=== PATIENT | male | born 1945 | race Caucasian/White ===

== ENCOUNTER 2018-06-10 20:05 | Emergency (ER) | payer MEDICARE, BC ==
[2018-06-10 21:35] LABS: ANION GAP 17.1 mmol/L (10-20); CHLORIDE,CL 99 mmol/L (98-107); SODIUM,NA 138 mmol/L (136-145)
[2018-06-10] MEDS: Take Home: Acetaminophen/HYDROcodone 325-10 MG, 5 Tab Pack PO ONE (21:59)
--- NOTE | 2018-06-10 22:04 | EDM.PDOC ---
ED HPI GENERAL MEDICAL PROBLEM - General Chief Complaint: Upper Extremity Injury/Pain Stated Complaint: left shoulder pain Time Seen by Provider: 06/10/18 20:45 Source of Information: Reports: Patient History Limitations: Reports: No Limitations - History of Present Illness INITIAL COMMENTS - FREE TEXT/NARRATIVE: Reports of left shoulder pain. He does normally walk with a walker/cane and he reportedly fell 2 days ago and has had increasing pain since that time. He had shoulder surgery several years ago and he is worried the hardware has moved. He denies numbness or tingling in the hand or arm. He denies headache, chest pain, shortness of breath, abdominal pain. Onset: Gradual Onset Date: 06/08/18 Duration: Getting Worse Location: Reports: Upper Extremity, Left Associated Symptoms: Reports: No Other Symptoms Treatments IN[employer]ER: Reports: NSAIDS - Related Data Allergies Allergy/AdvReac Type Severity Reaction Status Date / Time Penicillins Allergy Cannot Verified 02/08/17 11:48 Remember Sulfa (Sulfonamide Allergy Cannot Verified 02/08/17 11:48 Antibiotics) Remember tetracycline [Tetracycline] Allergy Cannot Verified 02/08/17 11:48 Remember Home Meds: Home Meds Cyanocobalamin (Vitamin B-12) [B-12] 2 tab PO DAILY 11/06/13 [History] Folic Acid 1 mg PO DAILY 11/06/13 [History] Multivitamin [Multi-Vitamin Daily] 1 each PO DAILY 11/06/13 [History] Pantoprazole Sodium [Protonix] 40 mg PO DAILY 11/06/13 [History] Clopidogrel [Plavix] 75 mg PO DAILY 02/27/14 [History] atorvaSTATin [Lipitor] 20 mg PO ACDINNER 02/27/14 [History] Alfuzosin HCl [Alfuzosin HCl ER] 10 mg PO DAILY 03/30/16 [History] Cholecalciferol (Vitamin D3) [D3-2000] 2,000 unit PO DAILY 03/30/16 [History] Ferrous Gluconate [Iron] 236 mg PO DAILY 03/30/16 [History] Gabapentin [Neurontin] 200 mg PO TID 03/30/16 [History] Lisinopril [Prinivil] 20 mg PO DAILY 03/30/16 [History] Magnesium 400 mg PO DAILY 03/30/16 [History] Potassium Chloride [Klor-Con 10] 20 meq PO BIDMEALS 03/30/16 [History] Sertraline HCl 100 mg PO DAILY 03/30/16 [History] Thiamine HCl 100 mg PO DAILY 03/30/16 [History] Albuterol/Ipratropium [DuoNeb 3.0-0.5 MG/3 ML] 3 ml NEB Q8HRRT #15 neb 04/03/16 [Rx] Amiodarone [Cordarone] 100 mg PO DAILY #30 04/03/16 [Rx] Finasteride [Proscar] 5 mg PO DAILY #30 04/03/16 [Rx] Furosemide [Lasix] 40 mg PO BID #60 tablet 04/03/16 [Rx] LORazepam [Ativan] 0.5 mg PO Q6H PRN #15 tablet 04/03/16 [Rx] Metoprolol Succinate [Toprol XL] 25 mg PO BEDTIME #30 tab.er 04/03/16 [Rx] Prednisone [IJD: predniSONE] 40 mg PO WITHBREAKFAST 7 Days tablet 04/03/16 [Rx] Sennosides/Docusate Sodium [Senokot-S Tablet] 2 cap PO BID #60 04/03/16 [Rx] Ipratropium [Atrovent] 2 spray NASBOTH BID 02/05/17 [History] Spironolactone [Aldactone] 25 mg PO DAILY 02/05/17 [History] guaiFENesin [Robitussin] 5 ml PO TID PRN 02/05/17 [History] Past Medical History HEENT History: Reports: Hard of Hearing, Impaired Vision Cardiovascular History: Reports: Heart Failure, High Cholesterol, Hypertension, [place], Other (See Below) Other Cardiovascular History: Left carotid stenosis. orthostatic hypotension Respiratory History: Reports: COPD Gastrointestinal History: Reports: Other (See Below) Other Gastrointestinal History: Alcoholic hepatitis. Fatty Liver Musculoskeletal History: Reports: Arthritis, Back Pain, Chronic, Osteoarthritis Neurological History: Reports: Other (See Below) Other Neuro History: wernicke encephalopathy Psychiatric History: Reports: Depression, Other (See Below) Other Psychiatric History: Alcohol Abuse Endocrine/Metabolic History: Reports: Other (See Below) Other Endocrine/Metabolic History: borderline diabetic Hematologic History: Reports: Anemia Oncologic (Cancer) History: Reports: None Dermatologic History: Reports: None - Past Surgical History HEENT Surgical History: Reports: Cataract Surgery, Tonsillectomy Cardiovascular Surgical History: Reports: Carotid Endarterectomy, Coronary Artery Bypass GI Surgical History: Reports: Colonoscopy Male Surgical History: Reports: Other (See Below) Other Male Surgeries/Procedures: kidney bx Endocrine Surgical History: Reports: None Musculoskeletal Surgical History: Reports: Shoulder Surgery Social & Family History - Family History Family Medical History: Unobtainable - Caffeine Use Caffeine Use: Reports: Coffee Review of Systems - Review of Systems Review Of Systems: See Below Constitutional: Reports: No Symptoms Eyes: Reports: No Symptoms Ears: Reports: No Symptoms Nose: Reports: No Symptoms Mouth/Throat: Reports: No Symptoms Respiratory: Reports: No Symptoms Cardiovascular: Reports: No Symptoms GI/Abdominal: Reports: No Symptoms Genitourinary: Reports: No Symptoms Musculoskeletal: Reports: Shoulder Pain Skin: Reports: No Symptoms Neurological: Reports: No Symptoms Psychiatric: Reports: No Symptoms ED EXAM, GENERAL - Physical Exam Exam: See Below Exam Limited By: No Limitations General Appearance: Alert, WD/WN, No Apparent Distress Eye Exam: Bilateral Eye: EOMI, Normal Inspection, PERRL Ears: Normal TMs Throat/Mouth: Normal Inspection, Normal Lips, Normal Teeth, Normal Gums, Normal Oropharynx, Normal Voice, No Airway Compromise Head: Atraumatic, Normocephalic Neck: Normal Inspection, Supple, Non-Tender, Full Range of Motion Respiratory/Chest: No Respiratory Distress, Lungs Clear, Normal Breath Sounds, No Accessory Muscle Use, Chest Non-Tender Cardiovascular: Normal Peripheral Pulses, Regular Rate, Rhythm, No Edema, No Gallop, No JVD, No Murmur, No Rub GI/Abdominal: Normal Bowel Sounds, Soft, Non-Tender, No Organomegaly, No Distention, No Abnormal Bruit, No Mass Back Exam: Normal Inspection, Full Range of Motion, NT Extremities: Normal Inspection, No Pedal Edema, Normal Capillary Refill, Limited Range of Motion (left shoulder pain on elevation, internal and external rotation) Neurological: Alert, Oriented, CN II-XII Intact, Normal Cognition, Normal Gait, Normal Reflexes, No Motor/Sensory Deficits Psychiatric: Normal Affect, Normal Mood Skin Exam: Warm, Dry, Intact, Normal Color, No Rash Lymphatic: No Adenopathy Course - Orders/Labs/Meds Orders: Active Orders 24 hr Category Date Time Status Shoulder Comp Lt [CR] Stat Exams 06/10/18 20:45 Ordered ETOH [ETHANOL BLOOD MEDICAL] [CHEM] Stat Lab 06/10/18 21:43 Ordered URINALYSIS W/MICROSCOPIC [UA W/MICROSCOPIC] [URIN] Stat Lab 06/10/18 20:50 Ordered Labs: Laboratory Tests 06/10/18 06/10/18 Range/Units 21:08 21:08 WBC 7.6 (4.0-10.0) x10^3/uL RBC 4.03 L (4.5-6.0) x10^6/uL Hgb 13.5 L D (14.0-18.0) g/dL Hct 40.7 (40.0-52.0) % MCV 101.0 H D (78.0-93.0) fL MCH 33.5 H (26.0-32.0) pg MCHC 33.2 (32.0-36.0) g/dL RDW Coeff of Derek 14.0 (10.0-15.0) % Plt Count 133 (130-400) x10^3/uL Neut % (Auto) 63.8 (50.0-80.0) % Lymph % (Auto) 26.9 (25.0-50.0) % [place] % (Auto) 6.2 (2.0-11.0) % Eos % (Auto) 2.3 (0.0-4.0) % Baso % (Auto) 0.8 (0.2-1.2) % Sodium 138 (136-145) mmol/L Potassium 4.1 (3.5-5.1) mmol/L Chloride 99 (98-107) mmol/L Carbon Dioxide 26 D (21-32) mmol/L Anion Gap 17.1 (10-20) mmol/L BUN 22 H (7-18) mg/dL Creatinine 1.9 H (0.70-1.30) mg/dL Est Cr Clr Drug Dosing TNP Estimated GFR (MDRD) 35 Glucose 118 H (74-106) mg/dL Calcium 9.7 (8.5-10.1) mg/dL Corrected Calcium 9.94 (8.5-10.1) mg/dL Phosphorus 3.9 (2.6-4.7) mg/dL Magnesium 1.9 (1.8-2.4) mg/dL Total Bilirubin 0.6 (0.2-1.0) mg/dL AST 24 (15-37) U/L ALT 27 (16-63) U/L Alkaline Phosphatase 185 H (46-116) U/L C-Reactive Protein 1.6 H (<=0.9) mg/dL Total Protein 7.8 (6.4-8.2) g/dL Albumin 3.7 (3.4-5.0) g/dL Globulin 4.1 Albumin/Globulin Ratio 0.90 - Radiology Interpretation Free Text/Narrative:: x-ray negative for acute pathology Departure - Departure Time of Disposition: 21:50 Disposition: Home, Self-Care 01 Condition: Good Clinical Impression: Arthritis of left shoulder region - Discharge Information *PRESCRIPTION DRUG MONITORING PROGRAM REVIEWED*: No *COPY OF PRESCRIPTION DRUG MONITORING REPORT IN PATIENT BIANCA: No Instructions: Heat Therapy, [id number], Shoulder Range of Motion Exercises Referrals: Shelbie Jasso DO [Primary Care Provider] - Forms: ED Department Discharge Additional Instructions: Plan 1. Follow up with your primary care provider so an MRI can be ordered if that is what she would like 2. Use heat to the area and do as much of the exercises I included as you are able 3. Take 1 tablet every 4 hours as needed for pain 4. Call if you have any additional questions or concerns - Problem List & Annotations (1) Arthritis of left shoulder region SNOMED Code(s): 264919324 Code(s): M19.012 - PRIMARY OSTEOARTHRITIS, LEFT SHOULDER Status: Acute Priority: Low Current Visit: Yes - Problem List Review Problem List Initiated/Reviewed/Updated: Yes - My Orders Last 24 Hours: My Active Orders 06/10/18 20:45 Shoulder Comp Lt [CR] Stat 06/10/18 20:50 URINALYSIS W/MICROSCOPIC [UA W/MICROSCOPIC] [URIN] Stat 06/10/18 21:43 ETOH [ETHANOL BLOOD MEDICAL] [CHEM] Stat - Assessment/Plan Last 24 Hours: My Active Orders 06/10/18 20:45 Shoulder Comp Lt [CR] Stat 06/10/18 20:50 URINALYSIS W/MICROSCOPIC [UA W/MICROSCOPIC] [URIN] Stat 06/10/18 21:43 ETOH [ETHANOL BLOOD MEDICAL] [CHEM] Stat Assessment:: left shoulder arthritis Plan: Plan 1. Follow up with your primary care provider so an MRI can be ordered if that is what she would like 2. Use heat to the area and do as much of the exercises I included as you are able 3. Take 1 tablet every 4 hours as needed for pain 4. Call if you have any additional questions or concerns
--- NOTE | 2018-06-11 09:50 | CR ---
[id number] RAD/RAD Shoulder Left 2V Min EXAM: RAD Shoulder Left 2V Min CLINICAL DATA: TRAUMA COMPARISON: NO PREVIOUS SIMILAR EXAM IS AVAILABLE. FINDINGS: Surgical and degenerative changes are seen. There is no definite new fracture or dislocation.. IMPRESSION: NO DEFINITE NEW FRACTURE OR DISLOCATION. Frank Garzon MD 06/11/18 0950 Thank you for allowing us to participate in the care of your patient.
[2018-06-12 18:45] VITALS: BP 161/67
== END 2018-06-10 22:04 | disposition home or self-care (01) ==
LOC: VM.ED 20:05
DX: M19.012 Primary osteoarthritis, left shoulder (principal); I10 Essential (primary) hypertension; E78.00 Pure hypercholesterolemia, unspecified; F32.9 Major depressive disorder, single episode, unspecified; I25.2 Old myocardial infarction; Z79.899 Other long term (current) drug therapy; Z88.0 Allergy status to penicillin; Z88.2 Allergy status to sulfonamides; Z88.1 Allergy status to other antibiotic agents
CPT/HCPCS: 36415; 73030-LT; 80053; 83735; 84100; 85025; 86140; 99283-GF; 99284-25; A9270-GY; G0480

== ENCOUNTER 2018-08-04 22:00 | Emergency (ER) | payer MEDICARE, BC ==
[2018-08-04] MEDS ORDERED: Sodium Chloride 0.9% 10 ML Syringe FLUSH PRN (22:05)
[2018-08-04] MEDS ORDERED: Nitroglycerin 0.4 MG Tab.SL SL ONE ×2 (22:34→22:40)
[2018-08-04] MEDS ORDERED: Aspirin 81 MG Tab.Chew PO ONE (22:34)
[2018-08-04] MEDS ORDERED: Nitroglycerin 0.4 MG Tab.SL ONE (22:39)
[2018-08-04] MEDS ORDERED: Aspirin 81 MG Tab.Chew ONE (22:40)
[2018-08-04 22:52] VITALS: BP 100/61
[2018-08-04] MEDS ORDERED: Sodium Chloride 0.9% 1,000 ML IV ONE (22:53)
[2018-08-04 22:57] LABS: CHLORIDE,CL 103 mmol/L (98-107); SODIUM,NA 140 mmol/L (136-145)
[2018-08-04 22:58] LABS: ANION GAP 16.3 mmol/L (10-20)
[2018-08-04] MEDS ORDERED: Furosemide 20 MG/2 ML VIAL IV ONE (23:31)
--- NOTE | 2018-08-04 23:39 | EDM.PDOC ---
ED HPI GENERAL MEDICAL PROBLEM - General Chief Complaint: Chest Pain Stated Complaint: CHEST PAIN Time Seen by Provider: 08/04/18 22:00 Source of Information: Reports: Patient, Family History Limitations: Reports: No Limitations - History of Present Illness INITIAL COMMENTS - FREE TEXT/NARRATIVE: Patient comes into the emergency department with complaint of chest pain and shortness of breath. Patient states that her shortness breath has been intermittent and progressively worsening over the course of last 2 weeks. However the chest pain just started approximately 2 hours ago. His had noticed that he was having increased difficulty of breathing at home and when she questioned him he stated he had chest pain. She brought him to the emergency room right away. Patient denies any nausea or vomiting. Describes the chest discomfort is sharp and shooting. Denies any radiation to the jaw or shoulder. States his shortness of breath has increased in nature has difficulty ambulating short distances without becoming short of breath and does note a " wet cough". Is on home O2 and has noticed that the home O2 has not been able to keep up. Patient denies noting any extremity edema. Does have an extensive history involving cardiac issues including a bypass completed approximately 6 years ago and CHF. Patient also admits to having sustained a fall approximately 2 weeks ago with a large hematoma to the lower buttocks area. He did come to the emergency department evaluation and x-rays done at that time. No fractures or acute injuries were noted other than the large hematoma- Pt is on plavix daily. Family does not feel that area has healed since the fall. The baseball hematoma is still present. Onset: Gradual Location: Reports: Chest Quality: Reports: Sharp Severity: Moderate Worsens with: Reports: None Associated Symptoms: Reports: Cough Chest Pain Score (Numeric/FACES): 6 - Related Data Allergies Allergy/AdvReac Type Severity Reaction Status Date / Time Penicillins Allergy Cannot Verified 08/04/18 22:45 Remember Sulfa (Sulfonamide Allergy Cannot Verified 08/04/18 22:45 Antibiotics) Remember tetracycline [Tetracycline] Allergy Cannot Verified 08/04/18 22:45 Remember Home Meds: Home Meds Cyanocobalamin (Vitamin B-12) [B-12] 2 tab PO DAILY 11/06/13 [History] Folic Acid 1 mg PO DAILY 11/06/13 [History] Multivitamin [Multi-Vitamin Daily] 1 each PO DAILY 11/06/13 [History] Pantoprazole Sodium [Protonix] 40 mg PO DAILY 11/06/13 [History] Clopidogrel [Plavix] 75 mg PO DAILY 02/27/14 [History] atorvaSTATin [Lipitor] 20 mg PO ACDINNER 02/27/14 [History] Alfuzosin HCl [Alfuzosin HCl ER] 10 mg PO DAILY 03/30/16 [History] Cholecalciferol (Vitamin D3) [D3-2000] 2,000 unit PO DAILY 03/30/16 [History] Ferrous Gluconate [Iron] 236 mg PO DAILY 03/30/16 [History] Gabapentin [Neurontin] 200 mg PO TID 03/30/16 [History] Lisinopril [Prinivil] 20 mg PO DAILY 03/30/16 [History] Magnesium 400 mg PO DAILY 03/30/16 [History] Potassium Chloride [Klor-Con 10] 20 meq PO BIDMEALS 03/30/16 [History] Sertraline HCl 100 mg PO DAILY 03/30/16 [History] Thiamine HCl 100 mg PO DAILY 03/30/16 [History] Albuterol/Ipratropium [DuoNeb 3.0-0.5 MG/3 ML] 3 ml NEB Q8HRRT #15 neb 04/03/16 [Rx] Amiodarone [Cordarone] 100 mg PO DAILY #30 04/03/16 [Rx] Finasteride [Proscar] 5 mg PO DAILY #30 04/03/16 [Rx] Furosemide [Lasix] 40 mg PO BID #60 tablet 04/03/16 [Rx] LORazepam [Ativan] 0.5 mg PO Q6H PRN #15 tablet 04/03/16 [Rx] Metoprolol Succinate [Toprol XL] 25 mg PO BEDTIME #30 tab.er 04/03/16 [Rx] Prednisone [IJD: predniSONE] 40 mg PO WITHBREAKFAST 7 Days tablet 04/03/16 [Rx] Sennosides/Docusate Sodium [Senokot-S Tablet] 2 cap PO BID #60 04/03/16 [Rx] Ipratropium [Atrovent] 2 spray NASBOTH BID 02/05/17 [History] Spironolactone [Aldactone] 25 mg PO DAILY 02/05/17 [History] guaiFENesin [Robitussin] 5 ml PO TID PRN 02/05/17 [History] Past Medical History HEENT History: Reports: Hard of Hearing, Impaired Vision Cardiovascular History: Reports: Heart Failure, High Cholesterol, Hypertension, [place], Other (See Below) Other Cardiovascular History: Left carotid stenosis. orthostatic hypotension Respiratory History: Reports: COPD Gastrointestinal History: Reports: Other (See Below) Other Gastrointestinal History: Alcoholic hepatitis. Fatty Liver Musculoskeletal History: Reports: Arthritis, Back Pain, Chronic, Osteoarthritis Neurological History: Reports: Other (See Below) Other Neuro History: wernicke encephalopathy Psychiatric History: Reports: Depression, Other (See Below) Other Psychiatric History: Alcohol Abuse Endocrine/Metabolic History: Reports: Other (See Below) Other Endocrine/Metabolic History: borderline diabetic Hematologic History: Reports: Anemia Oncologic (Cancer) History: Reports: None Dermatologic History: Reports: None - Past Surgical History HEENT Surgical History: Reports: Cataract Surgery, Tonsillectomy Cardiovascular Surgical History: Reports: Carotid Endarterectomy, Coronary Artery Bypass GI Surgical History: Reports: Colonoscopy Male Surgical History: Reports: Other (See Below) Other Male Surgeries/Procedures: kidney bx Endocrine Surgical History: Reports: None Musculoskeletal Surgical History: Reports: Shoulder Surgery Social & Family History - Family History Family Medical History: Unobtainable - Tobacco Use Smoking Status *Q: Current Every Day Smoker Years of Tobacco use: 50 Packs/Tins Daily: 1.5 - Caffeine Use Caffeine Use: Reports: Coffee - Recreational Drug Use Recreational Drug Use: No ED ROS GENERAL - Review of Systems Review Of Systems: See Below Constitutional: Reports: Weakness Respiratory: Reports: Shortness of Breath, Cough Cardiovascular: Reports: Chest Pain, Dyspnea on Exertion GI/Abdominal: Reports: No Symptoms : Reports: No Symptoms Musculoskeletal: Reports: Other (hematoma to the buttocks area) Skin: Reports: No Symptoms Neurological: Reports: No Symptoms Psychiatric: Reports: No Symptoms Hematologic/Lymphatic: Reports: No Symptoms ED EXAM, GENERAL - Physical Exam Exam: See Below Exam Limited By: No Limitations General Appearance: Alert, WD/WN, No Apparent Distress Head: Atraumatic, Normocephalic Neck: Normal Inspection, Supple, Non-Tender, Full Range of Motion Respiratory/Chest: No Respiratory Distress, Chest Non-Tender, Crackles. No: Normal Breath Sounds, No Accessory Muscle Use GI/Abdominal: Normal Bowel Sounds, Soft, No Distention Back Exam: Other (baseball size ecchymosis noted right gluteal region) Extremities: Normal Inspection, Normal Range of Motion, No Pedal Edema Neurological: Alert, Oriented Psychiatric: Normal Affect, Normal Mood Skin Exam: Warm, Dry, Intact, Normal Color EKG INTERPRETATION EKG Date: 08/05/18 Time: 22:05 (2313) Rhythm: NSR [place]: Normal P-Wave: Present QRS: Normal ST-T: Normal QT: Normal VA/PQ Interval: 169 Comparison: No Change EKG Interpretation Comments: sinus tatum Course - Vital Signs Last Recorded V/S: Last Vital Signs Temp 36.1 C 08/04/18 22:43 Pulse 63 08/04/18 22:51 Resp 20 08/04/18 22:51 BP 100/61 08/04/18 22:51 Pulse Ox 97 08/04/18 22:51 - Orders/Labs/Meds Orders: Active Orders 24 hr Category Date Time Status EKG Documentation Completion [RC] STAT Care 08/04/18 22:05 Active Chest 1V Frontal [CR] Stat Exams 08/04/18 22:05 Taken Furosemide [Lasix] Med 08/04/18 23:31 Once 20 mg IV ONETIME ONE Sodium Chloride 0.9% [Normal Saline] 1,000 ml Med 08/04/18 22:53 Active IV ONETIME Sodium Chloride 0.9% [Saline Flush] Med 08/04/18 22:05 Active 10 ml FLUSH ASDIRECTED PRN Peripheral IV Insertion Adult [OM.PC] Stat Oth 08/04/18 22:05 Ordered Medication Orders Sodium Chloride (Normal Saline) 1,000 mls @ 1,000 mls/hr IV ONETIME ONE Stop: 08/04/18 23:52 Last Admin: 08/04/18 23:08 Dose: Not Given Sodium Chloride (Saline Flush) 10 ml FLUSH ASDIRECTED PRN PRN Reason: Keep Vein Open Labs: Laboratory Tests 08/04/18 08/04/18 08/04/18 Range/Units 22:19 22:19 22:19 WBC 6.7 (4.0-10.0) x10^3/uL RBC 3.41 L (4.5-6.0) x10^6/uL Hgb 10.7 L D (14.0-18.0) g/dL Hct 33.7 L (40.0-52.0) % MCV 98.8 H (78.0-93.0) fL MCH 31.4 (26.0-32.0) pg MCHC 31.8 L (32.0-36.0) g/dL RDW Coeff of Derek 15.7 H (10.0-15.0) % Plt Count 125 L (130-400) x10^3/uL Neut % (Auto) 60.9 (50.0-80.0) % Lymph % (Auto) 29.0 (25.0-50.0) % [place] % (Auto) 7.6 (2.0-11.0) % Eos % (Auto) 2.1 (0.0-4.0) % Baso % (Auto) 0.4 (0.2-1.2) % PT 10.6 (10.0-12.8) SEC INR 0.9 L (2.0-3.5) Sodium 140 (136-145) mmol/L Potassium 4.3 (3.5-5.1) mmol/L Chloride 103 (98-107) mmol/L Carbon Dioxide 25 (21-32) mmol/L Anion Gap 16.3 (10-20) mmol/L BUN 15 (7-18) mg/dL Creatinine 1.7 H (0.70-1.30) mg/dL Est Cr Clr Drug Dosing 41.15 mL/min Estimated GFR (MDRD) 40 Glucose 110 H (74-106) mg/dL Calcium 9.0 (8.5-10.1) mg/dL Corrected Calcium 9.56 (8.5-10.1) mg/dL Total Bilirubin 0.6 (0.2-1.0) mg/dL AST 29 (15-37) U/L ALT 24 (16-63) U/L Alkaline Phosphatase 177 H (46-116) U/L Troponin I < 0.017 (<=0.056) ng/mL NT-Pro-B Natriuret Pep (<=125) pg/mL Total Protein 7.8 (6.4-8.2) g/dL Albumin 3.3 L (3.4-5.0) g/dL Globulin 4.5 Albumin/Globulin Ratio 0.73 08/04/18 Range/Units 22:19 WBC (4.0-10.0) x10^3/uL RBC (4.5-6.0) x10^6/uL Hgb (14.0-18.0) g/dL Hct (40.0-52.0) % MCV (78.0-93.0) fL MCH (26.0-32.0) pg MCHC (32.0-36.0) g/dL RDW Coeff of Derek (10.0-15.0) % Plt Count (130-400) x10^3/uL Neut % (Auto) (50.0-80.0) % Lymph % (Auto) (25.0-50.0) % [place] % (Auto) (2.0-11.0) % Eos % (Auto) (0.0-4.0) % Baso % (Auto) (0.2-1.2) % PT (10.0-12.8) SEC INR (2.0-3.5) Sodium (136-145) mmol/L Potassium (3.5-5.1) mmol/L Chloride (98-107) mmol/L Carbon Dioxide (21-32) mmol/L Anion Gap (10-20) mmol/L BUN (7-18) mg/dL Creatinine (0.70-1.30) mg/dL Est Cr Clr Drug Dosing mL/min Estimated GFR (MDRD) Glucose (74-106) mg/dL Calcium (8.5-10.1) mg/dL Corrected Calcium (8.5-10.1) mg/dL Total Bilirubin (0.2-1.0) mg/dL AST (15-37) U/L ALT (16-63) U/L Alkaline Phosphatase (46-116) U/L Troponin I (<=0.056) ng/mL NT-Pro-B Natriuret Pep 1857 H (<=125) pg/mL Total Protein (6.4-8.2) g/dL Albumin (3.4-5.0) g/dL Globulin Albumin/Globulin Ratio Meds: Medications Generic Name Dose Route Start Last Admin Trade Name Freq PRN Reason Stop Dose Admin Sodium Chloride 1,000 mls @ 1,000 mls/hr 08/04/18 22:53 08/04/18 23:08 Normal Saline IV 08/04/18 23:52 Not Given ONETIME ONE Sodium Chloride 10 ml 08/04/18 22:05 Saline Flush FLUSH ASDIRECTED PRN Keep Vein Open Discontinued Medications Generic Name Dose Route Start Last Admin Trade Name Misaelq PRN Reason Stop Dose Admin Aspirin 324 mg 08/04/18 22:34 08/04/18 22:38 Aspirin PO 08/04/18 22:35 324 mg ONETIME ONE Administration Aspirin Confirm 08/04/18 22:40 08/04/18 22:39 Aspirin Administered 08/04/18 22:41 Not Given Dose 324 mg .ROUTE .STK-MED ONE Nitroglycerin 0.4 mg 08/04/18 22:34 08/04/18 22:40 Nitrostat SL 08/04/18 22:35 0.4 mg ONETIME ONE Administration Nitroglycerin Confirm 08/04/18 22:39 08/04/18 22:39 Nitrostat Administered 08/04/18 22:40 Not Given Dose 0.4 mg .ROUTE .STK-MED ONE - Radiology Interpretation Free Text/Narrative:: Xray: Cardiomegaly. Status post median sternotomy. No acute cardiopulmonary process Departure - Departure Time of Disposition: 12:10 Disposition: DC/Tfer to Acute Hospital 02 Reason for Transfer *Q: Other Condition: Good Clinical Impression: Low hemoglobin, Respiratory distress CHF (congestive heart failure) Qualifiers: Heart failure type: unspecified Heart failure chronicity: acute on chronic Qualified Code(s): I50.9 - Heart failure, unspecified Referrals: Shelbie Jasso DO [Primary Care Provider] - Forms: ED Department Discharge, Interfacility Transfer EMTALA - Problem List Review Problem List Initiated/Reviewed/Updated: Yes - My Orders Last 24 Hours: My Active Orders 08/04/18 22:05 EKG Documentation Completion [RC] STAT Chest 1V Frontal [CR] Stat Sodium Chloride 0.9% [Saline Flush] 10 ml FLUSH ASDIRECTED PRN Peripheral IV Insertion Adult [OM.PC] Stat 08/04/18 22:53 Sodium Chloride 0.9% [Normal Saline] 1,000 ml IV ONETIME 08/04/18 23:31 Furosemide [Lasix] 20 mg IV ONETIME ONE - Assessment/Plan Last 24 Hours: My Active Orders 08/04/18 22:05 EKG Documentation Completion [RC] STAT Chest 1V Frontal [CR] Stat Sodium Chloride 0.9% [Saline Flush] 10 ml FLUSH ASDIRECTED PRN Peripheral IV Insertion Adult [OM.PC] Stat 08/04/18 22:53 Sodium Chloride 0.9% [Normal Saline] 1,000 ml IV ONETIME 08/04/18 23:31 Furosemide [Lasix] 20 mg IV ONETIME ONE Assessment:: 1. SOB- Acute on chronic congestive heart failure 2. Chest pain Plan: 1. EKG completed in ER. Results reviewed with the patient and family 2. Labs completed in ER. results reviewed with the patient and family. Elevated BNP and low hemoglobin 3. X-ray completed in ER. results reviewed with the patient and family 4. IV initiated 5. 4 Baby ASA 6. Nitro sublingual given. minimal chest pain relief 7. Lasix 20mg IV 8. Consult completed with Dr. Denney. She requests patient be sent for admission at [facility] in [place]. 9. Consult completed with Dr. Lansgton who agrees to accept care. Pt will be transported via EMS for further evaluation and management 10. All questions and concerns were addressed prior to transfer.
--- NOTE | 2018-08-05 09:43 | CR ---
[id number] RAD/RAD Chest PA or AP 1V EXAM: RAD Chest PA or AP 1V INDICATION: CHEST PAIN. COMPARISON: March 30, 2016. DISCUSSION: Median sternotomy wires. Cardiomediastinal silhouette is stable in size and contour. No infiltrate, effusion, pneumothorax, or edema. General changes of the glenohumeral joints bilaterally. There is a screw within the left scapula. IMPRESSION: No acute cardiopulmonary abnormality. Pawan Sosa DO 08/05/18 0942 Thank you for allowing us to participate in the care of your patient.
== END 2018-08-05 00:10 | disposition short-term general hospital (02) ==
LOC: VM.ED 22:00
DX: I11.0 Hypertensive heart disease with heart failure (principal); I50.9 Heart failure, unspecified; R06.03 Acute respiratory distress; D64.9 Anemia, unspecified; F17.210 Nicotine dependence, cigarettes, uncomplicated; F32.9 Major depressive disorder, single episode, unspecified; Z79.899 Other long term (current) drug therapy; Z88.0 Allergy status to penicillin; Z88.2 Allergy status to sulfonamides; Z88.1 Allergy status to other antibiotic agents
CPT/HCPCS: 36415; 71045; 80053; 83880; 84484; 85025; 85610; 93005; 96374; 99284-GF; 99285-25; A9270-GY; J1940

== ENCOUNTER 2019-01-19 11:00 | Emergency (ER) | payer MEDICARE, OTHER ==
[2019-01-19] MEDS ORDERED: Sodium Chloride 0.9% 10 ML Syringe FLUSH PRN (11:24)
--- NOTE | 2019-01-19 11:34 | EDM.PDOC ---
ED HPI GENERAL MEDICAL PROBLEM - General Chief Complaint: General Time Seen by Provider: 01/19/19 11:19 Source of Information: Reports: EMS - History of Present Illness INITIAL COMMENTS - FREE TEXT/NARRATIVE: Matt is a 73 y/o male custodial patient who was brought to the ER by EMS after he had a syncopal episode while staff were transferring him in the standing lift. He has recently had more falls at the custodial and become much weaker overall. Urine output has been decreased and he hasn't eaten or drank much for fluids. No fevers to speak of. - Related Data Allergies Allergy/AdvReac Type Severity Reaction Status Date / Time Penicillins Allergy Cannot Verified 01/19/19 11:29 Remember Sulfa (Sulfonamide Allergy Cannot Verified 01/19/19 11:29 Antibiotics) Remember tetracycline [Tetracycline] Allergy Cannot Verified 01/19/19 11:29 Remember Home Meds: Home Meds Folic Acid 800 mcg PO DAILY 11/06/13 [History] Pantoprazole Sodium [Protonix] 40 mg PO DAILY 11/06/13 [History] Clopidogrel [Plavix] 75 mg PO DAILY 02/27/14 [History] atorvaSTATin [Lipitor] 20 mg PO ACDINNER 02/27/14 [History] Alfuzosin HCl [Alfuzosin HCl ER] 10 mg PO DAILY 03/30/16 [History] Gabapentin [Neurontin] 300 mg PO TID 03/30/16 [History] Lisinopril [Prinivil] 5 mg PO DAILY 03/30/16 [History] Magnesium 400 mg PO DAILY 03/30/16 [History] Potassium Chloride [Klor-Con 10] 20 meq PO BIDMEALS 03/30/16 [History] Sertraline HCl 150 mg PO DAILY 03/30/16 [History] Thiamine HCl 100 mg PO DAILY 03/30/16 [History] Amiodarone [Cordarone] 100 mg PO DAILY #30 04/03/16 [Rx] Finasteride [Proscar] 5 mg PO DAILY #30 04/03/16 [Rx] LORazepam [Ativan] 0.5 mg PO Q6H PRN #15 tablet 04/03/16 [Rx] Metoprolol Succinate [Toprol XL] 25 mg PO BEDTIME #30 tab.er 04/03/16 [Rx] Ipratropium [Atrovent] 2 spray NASBOTH BID 02/05/17 [History] Spironolactone [Aldactone] 12.5 mg PO DAILY 02/05/17 [History] Albuterol/Ipratropium [DuoNeb 3.0-0.5 MG/3 ML] 3 ml NEB Q8HRRT PRN 01/14/19 [ History] Furosemide [Lasix] 40 mg PO DAILY 01/14/19 [History] Donepezil [Aricept] 5 mg PO BEDTIME 01/19/19 [History] Fludrocortisone [Fludrocortisone Acetate] 0.2 mg PO DAILY 01/19/19 [History] Past Medical History HEENT History: Reports: Hard of Hearing, Impaired Vision Cardiovascular History: Reports: Heart Failure, High Cholesterol, Hypertension, SD, Other (See Below) Other Cardiovascular History: Left carotid stenosis. orthostatic hypotension Respiratory History: Reports: COPD Other Respiratory History: Wears O2 at night Gastrointestinal History: Reports: Other (See Below) Other Gastrointestinal History: Alcoholic hepatitis. Fatty Liver Genitourinary History: Reports: Other (See Below) Other Genitourinary History: Benign prostatic hyperplasia with lower urinary tract symptoms Musculoskeletal History: Reports: Arthritis, Back Pain, Chronic, Osteoarthritis Other Musculoskeletal History: General muscle weakness Neurological History: Reports: Other (See Below) Other Neuro History: wernicke encephalopathy Psychiatric History: Reports: Depression, Other (See Below) Other Psychiatric History: Alcohol Abuse Endocrine/Metabolic History: Reports: Other (See Below) Other Endocrine/Metabolic History: borderline diabetic Hematologic History: Reports: Anemia Oncologic (Cancer) History: Reports: None Dermatologic History: Reports: None - Infectious Disease History Infectious Disease History: Reports: MRSA - Past Surgical History HEENT Surgical History: Reports: Cataract Surgery, Tonsillectomy Cardiovascular Surgical History: Reports: Carotid Endarterectomy, Coronary Artery Bypass GI Surgical History: Reports: Colonoscopy Male Surgical History: Reports: Other (See Below) Other Male Surgeries/Procedures: kidney bx Musculoskeletal Surgical History: Reports: Shoulder Surgery Social & Family History - Family History Family Medical History: Unobtainable - Caffeine Use Caffeine Use: Reports: Coffee ED ROS GENERAL - Review of Systems Review Of Systems: See Below Constitutional: Reports: Malaise, Weakness, Decreased Appetite HEENT: Reports: No Symptoms Respiratory: Reports: Cough Cardiovascular: Reports: Syncope Endocrine: Reports: Fatigue GI/Abdominal: Reports: Decreased Appetite : Reports: Other (Oliguria) Musculoskeletal: Reports: No Symptoms Skin: Reports: Pallor Neurological: Reports: Syncope, Difficulty Walking, Weakness Psychiatric: Reports: No Symptoms Hematologic/Lymphatic: Reports: No Symptoms Immunologic: Reports: No Symptoms ED EXAM, GENERAL - Physical Exam Exam: See Below General Appearance: Alert, Lethargic (elderly male, appears to not feel well but can answer questions when asked but responds very slowly) Eye Exam: Bilateral Eye: PERRL, Other (pupils 2mm) Ears: Normal External Exam, Normal Canal, Hearing Grossly Normal Nose: Normal Inspection, Normal Mucosa, No Blood Throat/Mouth: Normal Oropharynx, Other (Lips and Tongue dry in appearance) Head: Atraumatic, Normocephalic Neck: Supple, Non-Tender Respiratory/Chest: No Accessory Muscle Use, Chest Non-Tender, Rhonchi, Wheezing (faint expiratory wheeze; mild cough and sounds quite audibly rattly ) Cardiovascular: Normal Peripheral Pulses, Regular Rate, Rhythm, No Edema, No Murmur, No Rub GI/Abdominal: Normal Bowel Sounds, Soft, Non-Tender (Male) Exam: Deferred Rectal (Males) Exam: Deferred Back Exam: Other (Deferred) Extremities: Normal Capillary Refill, Pallor Neurological: Oriented, CN II-XII Intact, Normal Cognition, Slow to Respond Skin Exam: Warm, Dry, Intact, Pallor Lymphatic: No Adenopathy EKG INTERPRETATION EKG Date: 01/19/19 Rhythm: NSR Course - Vital Signs Text/Narrative:: 1120 The patient was seen by the [facility]. Labs, CXR, and EKG ordered. Will place benedict due to decreased urine output. 1210 Critical labs called to [facility]. Hgb=4.7/Hct=14.6/Plt=20. 1230 POC Occult blood collected, no obvious bleeding noted, Occult blood=neg. CXR result reviewed and notes mass in RLL. CT of Chest/Abd/Pelvis ordered. [address] [address] protocol with radiologist at [facility] and advises CT WO contrast. [address] and note a pnuemonia, but labs do not reflect an infectious process. [address] [facility] in [place] and case discussed with ER physician Dr Guzman who accepts patient for direct admission. Dr Guzman advises no antibiotics at this time. Will continue IV fluids due to elevated BUN/recycling tech. Awaiting bed assignment. Patient to be transferred by ALS ground crew to [place]. Last Recorded V/S: Last Vital Signs Temp 37.1 C 01/19/19 12:11 Pulse 78 01/19/19 13:40 Resp 18 01/19/19 13:40 BP 117/30 L 01/19/19 13:40 Pulse Ox 95 01/19/19 13:40 - Orders/Labs/Meds Orders: Active Orders 24 hr Category Date Time Status EKG Documentation Completion [RC] STAT Care 01/19/19 11:28 Active Fecal Occult Bld Diag Imm [RC] ASDIRECTED Care 01/19/19 12:51 Active Insert Benedict Catheter [Insert Urinary Catheter] [OM.PC] Care 01/19/19 11:30 Ordered Q24H Urinary Catheter Assessment [RC] ASDIRECTED Care 01/19/19 11:26 Active CULTURE BLOOD [BC] Stat Lab 01/19/19 11:45 Received CULTURE BLOOD [BC] Stat Lab 01/19/19 11:54 Received CULTURE URINE [RM] Stat Lab 01/19/19 12:21 Received FECAL OCCULT BLOOD,POC DIAG [POC] Stat Lab 01/19/19 12:35 Ordered Sodium Chloride 0.9% [Normal Saline] 1,000 ml Med 01/19/19 11:45 Active IV ASDIRECTED Sodium Chloride 0.9% [Saline Flush] Med 01/19/19 11:24 Active 10 ml FLUSH ASDIRECTED PRN Blood Culture x2 Reflex Set [OM.PC] Stat Oth 01/19/19 11:25 Ordered Saline Lock Insert [OM.PC] Stat Oth 01/19/19 11:24 Ordered Medication Orders Sodium Chloride (Normal Saline) 1,000 mls @ 250 mls/hr IV ASDIRECTED MIRIAN Last Admin: 01/19/19 11:47 Dose: 250 mls/hr Sodium Chloride (Saline Flush) 10 ml FLUSH ASDIRECTED PRN PRN Reason: Keep Vein Open Labs: Laboratory Tests 01/19/19 01/19/19 01/19/19 Range/Units 11:45 11:45 11:45 WBC 4.2 (4.0-10.0) x10^3/uL RBC 1.32 L (4.5-6.0) x10^6/uL Hgb 4.7 L* D (14.0-18.0) g/dL Hct 14.6 L (40.0-52.0) % MCV 110.6 H D (78.0-93.0) fL MCH 35.6 H (26.0-32.0) pg MCHC 32.2 (32.0-36.0) g/dL RDW Coeff of Derek 18.5 H (10.0-15.0) % Plt Count 20 L* D (130-400) x10^3/uL Add Manual Diff Yes Neutrophils % (Manual) 48 L (50-80) % Band Neutrophils % 7 H (0-6) % Lymphocytes % (Manual) 21 L (25-50) % Reactive Lymphs % 1 H (0) % Monocytes % (Manual) 16 H (2-11) % Eosinophils % (Manual) 2 (0-4) % Basophils % (Manual) 3 H (0-1) % Metamyelocytes % 1 H (0) % Myelocytes % 1 H (0) % Vacuolated Monocytes Rare Toxic Granulation 1+ slight H Platelet Estimate Marked dec L Giant Platelets Few H Anisocytosis 2+ moderate H Macrocytosis 1+ slight H Tear Drop Cells Rare Ovalocytes 1+ slight H Acanthocytes (Spur) 1+ slight H PT 12.9 H (10.0-12.8) SEC INR 1.1 L (2.0-3.5) Sodium 145 (69-191) mmol/L Potassium 4.8 (1.5-9.9) mmol/L Chloride 108 H (54-184) mmol/L Carbon Dioxide 24 (21-32) mmol/L Anion Gap 17.8 (10-20) mmol/L BUN 46 H D (7-18) mg/dL Creatinine 2.1 H (0.70-1.30) mg/dL Est Cr Clr Drug Dosing TNP Estimated GFR (MDRD) 31 Glucose 142 H (74-106) mg/dL Lactic Acid (0.4-2.0) mmol/L Calcium 8.3 L (8.5-10.1) mg/dL Corrected Calcium 9.02 (8.5-10.1) mg/dL Total Bilirubin 0.7 (0.2-1.0) mg/dL AST 23 (15-37) U/L ALT 23 (16-63) U/L Alkaline Phosphatase 142 H (46-116) U/L Lactate Dehydrogenase 154 (85-227) U/L Creatine Kinase 47 (39-308) U/L Troponin I 0.028 (<=0.056) ng/mL NT-Pro-B Natriuret Pep (<=125) pg/mL Total Protein 6.9 (6.4-8.2) g/dL Albumin 3.1 L (3.4-5.0) g/dL Globulin 3.8 Albumin/Globulin Ratio 0.82 Urine Color (YELLOW) Urine Appearance (CLEAR) Urine pH (5.0-8.0) Ur Specific Skippers Urine Protein (NEGATIVE) mg/dL Urine Glucose (UA) (NEGATIVE) mg/dL Urine Ketones (NEGATIVE) mg/dL Urine Occult Blood (NEGATIVE) Urine Nitrite (NEGATIVE) Urine Bilirubin (NEGATIVE) Urine Urobilinogen (0.2) EU/dL Ur Leukocyte Esterase (NEGATIVE) Urine RBC (NOT SEEN) /HPF Urine WBC (NOT SEEN) /HPF Ur Squamous Epith Cells (NEGATIVE) /HPF Urine Bacteria (NEGATIVE) /HPF Hyaline Casts (NEGATIVE) /HPF Urine Mucus (NEGATIVE) /LPF 01/19/19 01/19/19 01/19/19 Range/Units 11:45 11:45 12:23 WBC (4.0-10.0) x10^3/uL RBC (4.5-6.0) x10^6/uL Hgb (14.0-18.0) g/dL Hct (40.0-52.0) % MCV (78.0-93.0) fL MCH (26.0-32.0) pg MCHC (32.0-36.0) g/dL RDW Coeff of Derek (10.0-15.0) % Plt Count (130-400) x10^3/uL Add Manual Diff Neutrophils % (Manual) (50-80) % Band Neutrophils % (0-6) % Lymphocytes % (Manual) (25-50) % Reactive Lymphs % (0) % Monocytes % (Manual) (2-11) % Eosinophils % (Manual) (0-4) % Basophils % (Manual) (0-1) % Metamyelocytes % (0) % Myelocytes % (0) % Vacuolated Monocytes Toxic Granulation Platelet Estimate Giant Platelets Anisocytosis Macrocytosis Tear Drop Cells Ovalocytes Acanthocytes (Spur) PT (10.0-12.8) SEC INR (2.0-3.5) Sodium (69-191) mmol/L Potassium (1.5-9.9) mmol/L Chloride (54-184) mmol/L Carbon Dioxide (21-32) mmol/L Anion Gap (10-20) mmol/L BUN (7-18) mg/dL Creatinine (0.70-1.30) mg/dL Est Cr Clr Drug Dosing Estimated GFR (MDRD) Glucose (74-106) mg/dL Lactic Acid 1.3 (0.4-2.0) mmol/L Calcium (8.5-10.1) mg/dL Corrected Calcium (8.5-10.1) mg/dL Total Bilirubin (0.2-1.0) mg/dL AST (15-37) U/L ALT (16-63) U/L Alkaline Phosphatase (46-116) U/L Lactate Dehydrogenase (85-227) U/L Creatine Kinase (39-308) U/L Troponin I (<=0.056) ng/mL NT-Pro-B Natriuret Pep 62626 H (<=125) pg/mL Total Protein (6.4-8.2) g/dL Albumin (3.4-5.0) g/dL Globulin Albumin/Globulin Ratio Urine Color Dark yellow H (YELLOW) Urine Appearance Clear (CLEAR) Urine pH 5.5 (5.0-8.0) Ur Specific Skippers <=1.005 Urine Protein Negative (NEGATIVE) mg/dL Urine Glucose (UA) Negative (NEGATIVE) mg/dL Urine Ketones Negative (NEGATIVE) mg/dL Urine Occult Blood Negative (NEGATIVE) Urine Nitrite Negative (NEGATIVE) Urine Bilirubin Negative (NEGATIVE) Urine Urobilinogen 0.2 (0.2) EU/dL Ur Leukocyte Esterase Small H (NEGATIVE) Urine RBC 0-5 (NOT SEEN) /HPF Urine WBC 0-5 (NOT SEEN) /HPF Ur Squamous Epith Cells Rare (NEGATIVE) /HPF Urine Bacteria Not seen (NEGATIVE) /HPF Hyaline Casts Rare H (NEGATIVE) /HPF Urine Mucus Rare H (NEGATIVE) /LPF Meds: Medications Generic Name Dose Route Start Last Admin Trade Name Freq PRN Reason Stop Dose Admin Sodium Chloride 1,000 mls @ 250 mls/hr 01/19/19 11:45 01/19/19 11:47 Normal Saline IV 250 mls/hr ASDIRECTED MIRIAN Administration Sodium Chloride 10 ml 01/19/19 11:24 Saline Flush FLUSH ASDIRECTED PRN Keep Vein Open Departure - Departure Time of Disposition: 14:30 Disposition: DC/Tfer to SNF 03 Condition: Good Clinical Impression: CHF, Congestive heart failure, Low hemoglobin, Acute renal insufficiency, Pneumonia - Discharge Information *PRESCRIPTION DRUG MONITORING PROGRAM REVIEWED*: Not Applicable *COPY OF PRESCRIPTION DRUG MONITORING REPORT IN PATIENT BIANCA: Not Applicable Forms: ED Department Discharge, Interfacility Transfer EMTALA - Problem List & Annotations (1) CHF (congestive heart failure) SNOMED Code(s): 94070314 Code(s): I50.9 - HEART FAILURE, UNSPECIFIED Status: Acute Current Visit: No Qualifiers: Heart failure type: unspecified Heart failure chronicity: acute on chronic Qualified Code(s): I50.9 - Heart failure, unspecified (2) Low hemoglobin SNOMED Code(s): 295558983 Code(s): D64.9 - ANEMIA, UNSPECIFIED Status: Acute Current Visit: Yes (3) Acute renal insufficiency SNOMED Code(s): 420673370 Code(s): N28.9 - DISORDER OF KIDNEY AND URETER, UNSPECIFIED Status: Acute Current Visit: Yes (4) Pneumonia SNOMED Code(s): 142902000 Code(s): J18.9 - PNEUMONIA, UNSPECIFIED ORGANISM Status: Acute Current Visit: Yes - My Orders Last 24 Hours: My Active Orders 01/19/19 11:24 Sodium Chloride 0.9% [Saline Flush] 10 ml FLUSH ASDIRECTED PRN Saline Lock Insert [OM.PC] Stat 01/19/19 11:25 Blood Culture x2 Reflex Set [OM.PC] Stat 01/19/19 11:26 Urinary Catheter Assessment [RC] ASDIRECTED 01/19/19 11:28 EKG Documentation Completion [RC] STAT 01/19/19 11:30 Insert Benedict Catheter [Insert Urinary Catheter] [OM.PC] Q24H 01/19/19 11:45 CULTURE BLOOD [BC] Stat Sodium Chloride 0.9% [Normal Saline] 1,000 ml IV ASDIRECTED 01/19/19 11:54 CULTURE BLOOD [BC] Stat 01/19/19 12:21 CULTURE URINE [RM] Stat 01/19/19 12:35 FECAL OCCULT BLOOD,POC DIAG [POC] Stat 01/19/19 12:51 Fecal Occult Bld Diag Imm [RC] ASDIRECTED - Assessment/Plan Last 24 Hours: My Active Orders 01/19/19 11:24 Sodium Chloride 0.9% [Saline Flush] 10 ml FLUSH ASDIRECTED PRN Saline Lock Insert [OM.PC] Stat 01/19/19 11:25 Blood Culture x2 Reflex Set [OM.PC] Stat 01/19/19 11:26 Urinary Catheter Assessment [RC] ASDIRECTED 01/19/19 11:28 EKG Documentation Completion [RC] STAT 01/19/19 11:30 Insert Benedict Catheter [Insert Urinary Catheter] [OM.PC] Q24H 01/19/19 11:45 CULTURE BLOOD [BC] Stat Sodium Chloride 0.9% [Normal Saline] 1,000 ml IV ASDIRECTED 01/19/19 11:54 CULTURE BLOOD [BC] Stat 01/19/19 12:21 CULTURE URINE [RM] Stat 01/19/19 12:35 FECAL OCCULT BLOOD,POC DIAG [POC] Stat 01/19/19 12:51 Fecal Occult Bld Diag Imm [RC] ASDIRECTED Plan: [facility]
[2019-01-19] MEDS ORDERED: Sodium Chloride 0.9% 1,000 ML IV SCH (11:45)
--- NOTE | 2019-01-19 12:01 | CR ---
[id number] RAD/RAD Chest PA or AP 1V EXAM: RAD Chest PA or AP 1V INDICATION: RULE OUT INFECTION OR CONGESTIVE HEART FAILURE COMPARISON: August 04, 2018. DISCUSSION: 36 x 37 mm masslike opacity in the right lung base. Left lung appears clear. Findings are superimposed on changes of COPD. Cardiomegaly with sequela prior median sternotomy and CABG placement. IMPRESSION: Rounded masslike opacity in the right lung base. Findings was not seen in August 2018. In the clinical setting of infection pneumonia is possible. However appearance can be seen with lymphadenopathy/lung mass as well. Considered contrast-enhanced chest CT for further evaluation as clinically warranted. Pop Askew MD 01/19/19 1158 Thank you for allowing us to participate in the care of your patient.
[2019-01-19 12:32] LABS: ANION GAP 17.8 mmol/L (10-20); CHLORIDE,CL 108 mmol/L (54-184); SODIUM,NA 145 mmol/L (69-191)
[2019-01-19 13:41] VITALS: PULSE 78
--- NOTE | 2019-01-19 13:41 | CT ---
[id number] CT/CT Chest Abdomen Pelvis WO IV EXAM: CT Chest Abdomen Pelvis WO IV CLINICAL DATA: MASS NOTED IN RIGHT LOWER LOBE ON CHEST X-RAY. COMPARISON STUDY: Chest radiograph from today. FINDINGS: Parenchymal airspace opacification scattered throughout both lungs, most prominent in the perihilar region on the right extending into the lower lobe. This accounts for appearance on radiograph from today and is consistent with pneumonia. Cardiomegaly. Coronary artery atherosclerosis. Postsurgical change from CABG placement. No mediastinal or hilar lymphadenopathy. Abdomen and pelvis: Cholelithiasis without evidence of acute cholecystitis. Liver, spleen, pancreas, and adrenal glands are unremarkable. Exophytic mass arising from the right kidney difficult to accurately characterize or measure because of no contrast material. Finding is nonspecific. Nelson catheter in urinary bladder. Prostate gland enlargement. No lymphadenopathy in the abdomen or pelvis. Extensive calcified atherosclerotic plaque in the aorta. No aneurysm. No bowel obstruction or inflammation. Small amount of free fluid scattered throughout the lower abdomen and pelvis, including the presacral space. Bones and soft tissues: No fracture, compression deformity, or osseous lesion. IMPRESSION: Parenchymal opacity scattered throughout both lungs most prominent in the right lower lobe, accounting for appearance on radiograph today. Findings are consistent with pneumonia. No other acute findings. Other findings are described above. Pop Askew MD 01/19/19 6203 Thank you for allowing us to participate in the care of your patient.
[2019-01-19 14:52] VITALS: BP 108/57
== END 2019-01-19 15:50 ==
LOC: VM.ED 11:00
DX: I11.0 Hypertensive heart disease with heart failure (principal); I50.9 Heart failure, unspecified; N17.9 Acute kidney failure, unspecified; J18.9 Pneumonia, unspecified organism; D64.9 Anemia, unspecified; I25.2 Old myocardial infarction; E78.00 Pure hypercholesterolemia, unspecified; N40.1 Benign prostatic hyperplasia with lower urinary tract symptoms; F32.9 Major depressive disorder, single episode, unspecified; J44.9 Chronic obstructive pulmonary disease, unspecified; Z79.51 Long term (current) use of inhaled steroids; Z79.899 Other long term (current) drug therapy; Z88.0 Allergy status to penicillin; Z88.1 Allergy status to other antibiotic agents; Z88.2 Allergy status to sulfonamides; Z95.1 Presence of aortocoronary bypass graft; Z99.81 Dependence on supplemental oxygen; Z79.02 Long term (current) use of antithrombotics/antiplatelets
CPT/HCPCS: 36415; 71045; 71250; 74176; 80053; 81001; 82274; 82550; 83605; 83615; 83880; 84484; 85025; 85610; 87040; 87086; 93005; 96360; 96361; 99285; J7030

== ENCOUNTER 2019-01-29 13:27 | Inpatient (IN) | payer MEDICARE, MEDICAID ==
[2019-01-29] MEDS: fentaNYL 100 MCG/2 ML SDV IVPUSH PRN ×4 (13:59→23:09)
--- NOTE | 2019-01-29 14:35 | CR ---
[id number] RAD/RAD Chest PA or AP 1V EXAM: RAD Chest PA or AP 1V INDICATION: COUGH, FEVER. COMPARISON: January 19, 2019. DISCUSSION: Median sternotomy wires. Cardiomediastinal silhouette is stable in size and contour. Bibasilar pulmonary infiltrates. These are improved when compared to the prior study. Low lung volumes associated vascular crowding. No pneumothorax or pleural effusion. IMPRESSION: Bibasilar pulmonary infiltrates have improved when compared to the prior study. Continued attention on follow-up imaging is recommended. Pawan Sosa DO 01/29/19 1434 Thank you for allowing us to participate in the care of your patient.
[2019-01-29 14:37] LABS: CHLORIDE,CL 108 mmol/L (54-184); SODIUM,NA 145 mmol/L (69-191)
[2019-01-29 14:42] LABS: ANION GAP 14.9 mmol/L (10-20)
[2019-01-29] MEDS ORDERED: fentaNYL 100 MCG/2 ML SDV IVPUSH ONE (15:09)
--- NOTE | 2019-01-29 15:27 | EDM.PDOC ---
ED HPI GENERAL MEDICAL PROBLEM - General Chief Complaint: Respiratory Problem Stated Complaint: not doing well Time Seen by Provider: 01/29/19 13:49 Source of Information: Reports: EMS, Family, Fdc Records, Old Records, Significant Other History Limitations: Reports: Altered Mental Status, Physical Impairment - History of Present Illness INITIAL COMMENTS - FREE TEXT/NARRATIVE: This is 73 year old male who [facility] for [facility] 3 months primarily due to weakness and frequent falls. He has a history of Chronic diastolic heart failure, anemia, atherosclerosis with coronary artery bypass, nicotine dependence, alcohol dependence, polyneuropathy , MRSA, Type 2 diabetes, hypertension and polyneuropathy. He has been deteriorating recently and was admitted to [facility] approximately 2 weeks ago with severe anemia. His hemoglobin was reportedly 3. Bone marrow results are pending. Since returning from the hospital he has not recovered; he walked prior and is now a [place] lift. Today he has been increasingly lethargic, was noted to have a fever and confusion. His temperature at the [facility] was 101.4, pulse 110, BP 110/63, resp 24 with O2 sats 93% on room air. He was transferred to ER per ambulance for further evaluation and treatment Onset: Gradual Onset Date: 01/24/19 Duration: Getting Worse Location: Reports: Generalized (he has complained of pain in his bones to his ; has generalized weakness; cough ) Associated Symptoms: Reports: Confusion, cough w sputum, Fever/Chills, Loss of Appetite, Malaise, Shortness of Breath, Weakness - Related Data Allergies Allergy/AdvReac Type Severity Reaction Status Date / Time Penicillins Allergy Cannot Verified 01/19/19 11:29 Remember Sulfa (Sulfonamide Allergy Cannot Verified 01/19/19 11:29 Antibiotics) Remember tetracycline [Tetracycline] Allergy Cannot Verified 01/19/19 11:29 Remember Home Meds: Home Meds Folic Acid 800 mcg PO DAILY 11/06/13 [History] Pantoprazole Sodium [Protonix] 40 mg PO DAILY 11/06/13 [History] Clopidogrel [Plavix] 75 mg PO DAILY 02/27/14 [History] atorvaSTATin [Lipitor] 20 mg PO ACDINNER 02/27/14 [History] Alfuzosin HCl [Alfuzosin HCl ER] 10 mg PO DAILY 03/30/16 [History] Lisinopril [Prinivil] 10 mg PO DAILY 03/30/16 [History] Magnesium 400 mg PO DAILY 03/30/16 [History] Potassium Chloride [Klor-Con 10] 20 meq PO BIDMEALS 03/30/16 [History] Sertraline HCl 150 mg PO DAILY 03/30/16 [History] Thiamine HCl 100 mg PO DAILY 03/30/16 [History] Amiodarone [Cordarone] 100 mg PO DAILY #30 04/03/16 [Rx] Finasteride [Proscar] 5 mg PO DAILY #30 04/03/16 [Rx] LORazepam [Ativan] 0.5 mg PO Q6H PRN #15 tablet 04/03/16 [Rx] Metoprolol Succinate [Toprol XL] 25 mg PO BEDTIME #30 tab.er 04/03/16 [Rx] Ipratropium [Atrovent] 2 spray NASBOTH BID 02/05/17 [History] Spironolactone [Aldactone] 12.5 mg PO DAILY 02/05/17 [History] Albuterol/Ipratropium [DuoNeb 3.0-0.5 MG/3 ML] 3 ml NEB Q8HRRT PRN 01/14/19 [ History] Furosemide [Lasix] 40 mg PO BID 01/14/19 [History] Donepezil [Aricept] 10 mg PO BEDTIME 01/19/19 [History] Fludrocortisone [Fludrocortisone Acetate] 0.2 mg PO DAILY 01/19/19 [History] traMADol HCl [Tramadol HCl] 50 mg PO Q8HR PRN 01/29/19 [History] Past Medical History HEENT History: Reports: Hard of Hearing, Impaired Vision Cardiovascular History: Reports: Heart Failure, High Cholesterol, Hypertension, OR, SOB on Exertion, Other (See Below) Other Cardiovascular History: Left carotid stenosis. orthostatic hypotension. Coronary artery bypass Respiratory History: Reports: COPD, Pneumonia, Recurrent, SOB Other Respiratory History: Wears O2 at night Gastrointestinal History: Reports: Other (See Below) Other Gastrointestinal History: Alcoholic hepatitis. Fatty Liver Genitourinary History: Reports: BPH, Prostate Disorder, Other (See Below) Other Genitourinary History: Benign prostatic hyperplasia with lower urinary tract symptoms Musculoskeletal History: Reports: Arthritis, Back Pain, Chronic, Osteoarthritis Other Musculoskeletal History: General muscle weakness Neurological History: Reports: Other (See Below) Other Neuro History: wernicke encephalopathy Psychiatric History: Reports: Depression, Other (See Below) Other Psychiatric History: Alcohol Abuse Endocrine/Metabolic History: Reports: Other (See Below) Other Endocrine/Metabolic History: borderline diabetic Hematologic History: Reports: Anemia, Other (See Below) (thrombocytopenia) Oncologic (Cancer) History: Reports: None Dermatologic History: Reports: None - Infectious Disease History Infectious Disease History: Reports: MRSA - Past Surgical History HEENT Surgical History: Reports: Cataract Surgery, Tonsillectomy Cardiovascular Surgical History: Reports: Carotid Endarterectomy, Coronary Artery Bypass GI Surgical History: Reports: Colonoscopy Male Surgical History: Reports: Other (See Below) Other Male Surgeries/Procedures: kidney bx Musculoskeletal Surgical History: Reports: Shoulder Surgery Social & Family History - Family History Family Medical History: Unobtainable - Tobacco Use Smoking Status *Q: Former Smoker - Caffeine Use Caffeine Use: Reports: Coffee ED ROS GENERAL - Review of Systems Review Of Systems: Unable To Obtain (Pt is unable to speak but did blink his eyes when his asked him to blink if he has pain.) ED EXAM, GENERAL - Physical Exam Exam: See Below Exam Limited By: Physical Impairment General Appearance: Anxious, Moderate Distress, Other (Initially he was awake, staring and not responsive. He was able to speak briefly later.) Eye Exam: Bilateral Eye: Normal Inspection Ears: Normal External Exam Nose: Normal Inspection Head: Atraumatic, Normocephalic Neck: Normal Inspection. No: Lymphadenopathy (L), Lymphadenopathy (R) Respiratory/Chest: Decreased Breath Sounds, Crackles, Rhonchi Cardiovascular: Regular Rate, Rhythm, No Edema, Other (Difficult to hear due to respiratory noise) GI/Abdominal: Soft, Non-Tender, No Distention (Male) Exam: Deferred Rectal (Males) Exam: Deferred Back Exam: Normal Inspection Extremities: No Pedal Edema Neurological: Unresponsive. No: Normal Cognition Psychiatric: Anxious Skin Exam: Warm, Dry, Intact, Other (pale, diaphoretic at later exam) Lymphatic: No Adenopathy EKG INTERPRETATION EKG Date: 01/29/19 Time: 13:34 Rhythm: Other (Sinus tachycardia) Rate (Beats/Min): 101 P-Wave: Present QRS: Normal EKG Interpretation Comments: No acute ischemia Course - Vital Signs Last Recorded V/S: Last Vital Signs Temp 97.9 F 01/29/19 15:30 Pulse 94 01/29/19 14:37 Resp 27 H 01/29/19 15:30 BP 122/47 L 01/29/19 15:30 Pulse Ox 94 L 01/29/19 15:30 - Orders/Labs/Meds Orders: Active Orders 24 hr Category Date Time Status Patient Status Manage Transfer [TRANSFER] Routine ADT 01/29/19 16:17 Ordered Patient Status [ADT] Routine ADT 01/29/19 16:40 Active Cardiac Monitoring [RC] CONTINUOUS Care 01/29/19 13:42 Active Notify Provider Consults [RC] ASDIRECTED Care 01/29/19 16:49 Active Oxygen Therapy [RC] PRN Care 01/29/19 16:39 Active Oxygen Therapy [RC] PRN Care 01/29/19 16:40 Active Vital Signs [RC] Q4H Care 01/29/19 16:40 Active Consult to Case Management/Oil Process [place] [CONS] Cons 01/29/19 16:38 Active Routine Consult to Physician [CONS] Routine Cons 01/29/19 16:38 Ordered CULTURE BLOOD [BC] Stat Lab 01/29/19 14:03 Received CULTURE BLOOD [BC] Stat Lab 01/29/19 14:15 Received Albuterol [Proventil Neb Soln] Med 01/29/19 16:38 Active 2.5 mg NEB Q2H PRN Albuterol/Ipratropium [DuoNeb 3.0-0.5 MG/3 ML] Med 01/29/19 16:26 Active 3 ml NEB Q8HRRT PRN Atropine 1% [Atropine 1% Ophth Soln] Med 01/29/19 16:38 Active See Dose Instructions SL Q2H PRN Pantoprazole Sodium [Protonix] Med 01/30/19 08:00 Active 40 mg PO DAILY Sodium Chloride 0.9% [Saline Flush] Med 01/29/19 13:35 Active 10 ml FLUSH ASDIRECTED PRN fentaNYL [Sublimaze] Med 01/29/19 13:49 Active 25 mcg IVPUSH Q2H PRN Blood Culture x2 Reflex Set [OM.PC] Stat Oth 01/29/19 13:41 Ordered Saline Lock Insert [OM.PC] Stat Oth 01/29/19 13:41 Ordered Severe Sepsis Onset Time [OM.PC] Stat Oth 01/29/19 13:41 Ordered Medication Orders Albuterol (Proventil Neb Soln) 2.5 mg NEB Q2H PRN PRN Reason: Shortness of breath/dyspnea Albuterol/Ipratropium (Duoneb 3.0-0.5 Mg/3 Ml) 3 ml NEB Q8HRRT PRN PRN Reason: Shortness of Breath Atropine Sulfate (Atropine 1% Ophth Soln) 0 ml SL Q2H PRN PRN Reason: Copius Secretions Fentanyl (Sublimaze) 25 mcg IVPUSH Q2H PRN PRN Reason: Pain Last Admin: 01/29/19 13:59 Dose: 25 mcg Non-Formulary Medication (Pantoprazole Sodium [Protonix]) 40 mg PO DAILY MIRIAN Sodium Chloride (Saline Flush) 10 ml FLUSH ASDIRECTED PRN PRN Reason: Keep Vein Open Labs: Laboratory Tests 01/29/19 01/29/19 01/29/19 Range/Units 14:03 14:03 14:03 WBC 5.0 (4.0-10.0) x10^3/uL RBC 2.33 L (4.5-6.0) x10^6/uL Hgb 7.6 L D (14.0-18.0) g/dL Hct 22.7 L (40.0-52.0) % MCV 97.4 H D (78.0-93.0) fL MCH 32.6 H (26.0-32.0) pg MCHC 33.5 (32.0-36.0) g/dL RDW Coeff of Edrek 18.4 H (10.0-15.0) % Plt Count 15 L* (130-400) x10^3/uL Add Manual Diff Yes Neutrophils % (Manual) 57 (50-80) % Band Neutrophils % 10 H (0-6) % Lymphocytes % (Manual) 9 L (25-50) % Reactive Lymphs % 1 H (0) % Monocytes % (Manual) 21 H (2-11) % Basophils % (Manual) 1 (0-1) % Metamyelocytes % 1 H (0) % Vacuolated Monocytes 1+ slight H Toxic Granulation 2+ moderate H Platelet Estimate Marked dec L Poikilocytosis 1+ slight H Anisocytosis 2+ moderate H Macrocytosis 1+ slight H Spherocytes Rare Target Cells Rare Ovalocytes 1+ slight H Sodium 145 (69-191) mmol/L Potassium 3.9 (1.5-9.9) mmol/L Chloride 108 H (54-184) mmol/L Carbon Dioxide 26 (21-32) mmol/L Anion Gap 14.9 (10-20) mmol/L BUN 27 H (7-18) mg/dL Creatinine 1.8 H (0.70-1.30) mg/dL Est Cr Clr Drug Dosing TNP Estimated GFR (MDRD) 37 Glucose 188 H (74-106) mg/dL Lactic Acid 1.8 (0.4-2.0) mmol/L Calcium 8.5 (8.5-10.1) mg/dL Corrected Calcium 9.86 (8.5-10.1) mg/dL Total Bilirubin 1.8 H (0.2-1.0) mg/dL AST 38 H (15-37) U/L ALT 39 (16-63) U/L Alkaline Phosphatase 254 H (46-116) U/L Total Protein 7.0 (6.4-8.2) g/dL Albumin 2.3 L (3.4-5.0) g/dL Globulin 4.7 Albumin/Globulin Ratio 0.49 Urine Color (YELLOW) Urine Appearance (CLEAR) Urine pH (5.0-8.0) Ur Specific [place] Urine Protein (NEGATIVE) mg/dL Urine Glucose (UA) (NEGATIVE) mg/dL Urine Ketones (NEGATIVE) mg/dL Urine Occult Blood (NEGATIVE) Urine Nitrite (NEGATIVE) Urine Bilirubin (NEGATIVE) Urine Urobilinogen (0.2) EU/dL Ur Leukocyte Esterase (NEGATIVE) Urine RBC (NOT SEEN) /HPF Urine WBC (NOT SEEN) /HPF Ur Squamous Epith Cells (NEGATIVE) /HPF Amorphous Sediment Urine Bacteria (NEGATIVE) /HPF Hyaline Casts (NEGATIVE) /HPF Urine Mucus (NEGATIVE) /LPF 01/29/19 Range/Units 15:00 WBC (4.0-10.0) x10^3/uL RBC (4.5-6.0) x10^6/uL Hgb (14.0-18.0) g/dL Hct (40.0-52.0) % MCV (78.0-93.0) fL MCH (26.0-32.0) pg MCHC (32.0-36.0) g/dL RDW Coeff of Derek (10.0-15.0) % Plt Count (130-400) x10^3/uL Add Manual Diff Neutrophils % (Manual) (50-80) % Band Neutrophils % (0-6) % Lymphocytes % (Manual) (25-50) % Reactive Lymphs % (0) % Monocytes % (Manual) (2-11) % Basophils % (Manual) (0-1) % Metamyelocytes % (0) % Vacuolated Monocytes Toxic Granulation Platelet Estimate Poikilocytosis Anisocytosis Macrocytosis Spherocytes Target Cells Ovalocytes Sodium (69-191) mmol/L Potassium (1.5-9.9) mmol/L Chloride (54-184) mmol/L Carbon Dioxide (21-32) mmol/L Anion Gap (10-20) mmol/L BUN (7-18) mg/dL Creatinine (0.70-1.30) mg/dL Est Cr Clr Drug Dosing Estimated GFR (MDRD) Glucose (74-106) mg/dL Lactic Acid (0.4-2.0) mmol/L Calcium (8.5-10.1) mg/dL Corrected Calcium (8.5-10.1) mg/dL Total Bilirubin (0.2-1.0) mg/dL AST (15-37) U/L ALT (16-63) U/L Alkaline Phosphatase (46-116) U/L Total Protein (6.4-8.2) g/dL Albumin (3.4-5.0) g/dL Globulin Albumin/Globulin Ratio Urine Color [place] H (YELLOW) Urine Appearance Slightly cloudy H (CLEAR) Urine pH 5.0 (5.0-8.0) Ur Specific [place] <=1.005 Urine Protein Trace H (NEGATIVE) mg/dL Urine Glucose (UA) Negative (NEGATIVE) mg/dL Urine Ketones Negative (NEGATIVE) mg/dL Urine Occult Blood Moderate H (NEGATIVE) Urine Nitrite Negative (NEGATIVE) Urine Bilirubin Small H (NEGATIVE) Urine Urobilinogen 4.0 H (0.2) EU/dL Ur Leukocyte Esterase Small H (NEGATIVE) Urine RBC 5-10 H (NOT SEEN) /HPF Urine WBC 5-10 H (NOT SEEN) /HPF Ur Squamous Epith Cells Rare (NEGATIVE) /HPF Amorphous Sediment Moderate Urine Bacteria Not seen (NEGATIVE) /HPF Hyaline Casts Rare H (NEGATIVE) /HPF Urine Mucus Few H (NEGATIVE) /LPF Meds: Medications Generic Name Dose Route Start Last Admin Trade Name Freq PRN Reason Stop Dose Admin Albuterol 2.5 mg 01/29/19 16:38 Proventil Neb Soln NEB Q2H PRN Shortness of breath/dyspnea Albuterol/Ipratropium 3 ml 01/29/19 16:26 Duoneb 3.0-0.5 Mg/3 Ml NEB Q8HRRT PRN Shortness of Breath Atropine Sulfate 0 ml 01/29/19 16:38 Atropine 1% Ophth Soln SL Q2H PRN Copius Secretions Fentanyl 25 mcg 01/29/19 13:49 01/29/19 13:59 Sublimaze IVPUSH 25 mcg Q2H PRN Administration Pain Non-Formulary Medication 40 mg 01/30/19 08:00 Pantoprazole Sodium [Protonix] PO DAILY MIRIAN Sodium Chloride 10 ml 01/29/19 13:35 Saline Flush FLUSH ASDIRECTED PRN Keep Vein Open Discontinued Medications Generic Name Dose Route Start Last Admin Trade Name Freq PRN Reason Stop Dose Admin Fentanyl 25 mcg 01/29/19 15:09 01/29/19 16:00 Sublimaze IVPUSH 01/29/19 15:10 25 mcg ONETIME ONE Administration - Radiology Interpretation Free Text/Narrative:: Bibasilar pulmonary infiltrates. Low lung volumes associated with vascular crowding. No pneumothorax or pleural effusion. Infiltrates improved prior to previous study. - Re-Assessments/Exams Free Text/Narrative Re-Assessment/Exam: 01/29/19 15:44 Pt is awake, has a lot of congestion and coughs mucous up into his mouth. Oral mucosa dry. LS with rhonchi throughout anteriorly. He has grunting respirations, rate 28. Abdomen non-distended; mass left lower abdomen, has tenderness to palpation throughout. He has bruises scattered over much of his body; jessica the extremities and some chronic discoloration. He has swelling to right wrist with mild deformity. He groans when arm is lifted and wrist moves. He has no peripheral edema. Feet cool, pale, delayed cap refill, unable to palpate pulse. He c/o generalized pain to his daughter. She reports the bone pain was said to likely be due to cancer that is causing the anemia and thrombocytopenia. His neck is stiff and painful. Departure - Departure Time of Disposition: 15:58 (to observation to Dr. Jasso's service) Disposition: Refer to Observation Condition: Serious Clinical Impression: Acute renal insufficiency, Low hemoglobin, Pain, generalized, Pain, arm, right , Weakness generalized, Failure to thrive in adult Pneumonia Qualifiers: Pneumonia type: due to unspecified organism Laterality: bilateral Lung location : unspecified part of lung Qualified Code(s): J18.9 - Pneumonia, unspecified organism CHF (congestive heart failure) Qualifiers: Heart failure type: diastolic Heart failure chronicity: acute on chronic Qualified Code(s): I50.33 - Acute on chronic diastolic (congestive) heart failure Anemia Qualifiers: Anemia type: other cause - Discharge Information *PRESCRIPTION DRUG MONITORING PROGRAM REVIEWED*: Not Applicable *COPY OF PRESCRIPTION DRUG MONITORING REPORT IN PATIENT BIANCA: Not Applicable ED Communication - Discussed Case With (1) Discussed Case With (1): Outpatient Provider, Pt's POA/Guardian Person/s Notified (1): Dr Jasso (she will assume care) - Conversation Summary Admitting Provider Agreed to Patient's Admission: Yes Outpatient Provider Agreed to Follow-up on this Patient: Yes [employer] Manager Accepted Inpatient Consultation: Yes Patient's POA/Guardian Aware of Amendments to Care Plan: Yes Summary Comment: Patient's is requesting comfort care only. His condition is grave and he is in a lot of pain. They prefer he not return to [facility]. He has pending bone marrow biopsies from recent hospitalization. I spoke with Dr. Jasso who is willing to take patient tomorrow. Will place him in observation now for management of pain. No treatment was initiated for pneumonia. Family concerned regarding deformity and pain and swelling right wrist. They assume [facility] as it was not like this at discharge from [facility]. Splint is placed on wrist to stabilize. Xray not done at this time. - My Orders Last 24 Hours: My Active Orders 01/29/19 13:35 Sodium Chloride 0.9% [Saline Flush] 10 ml FLUSH ASDIRECTED PRN 01/29/19 13:41 Blood Culture x2 Reflex Set [OM.PC] Stat Saline Lock Insert [OM.PC] Stat Severe Sepsis Onset Time [OM.PC] Stat 01/29/19 13:42 Cardiac Monitoring [RC] CONTINUOUS 01/29/19 13:49 fentaNYL [Sublimaze] 25 mcg IVPUSH Q2H PRN 01/29/19 14:03 CULTURE BLOOD [BC] Stat 01/29/19 14:15 CULTURE BLOOD [BC] Stat 01/29/19 16:17 Patient Status Manage Transfer [TRANSFER] Routine 01/29/19 16:26 Albuterol/Ipratropium [DuoNeb 3.0-0.5 MG/3 ML] 3 ml NEB Q8HRRT PRN 01/29/19 16:38 Consult to Case Management/[employer] Process [place] [CONS] Routine Consult to Physician [CONS] Routine Albuterol [Proventil Neb Soln] 2.5 mg NEB Q2H PRN Atropine 1% [Atropine 1% Ophth Soln] See Dose Instructions SL Q2H PRN 01/29/19 16:39 Oxygen Therapy [RC] PRN 01/29/19 16:40 Patient Status [ADT] Routine Oxygen Therapy [RC] PRN Vital Signs [RC] Q4H 01/29/19 16:49 Notify Provider Consults [RC] ASDIRECTED 01/30/19 08:00 Pantoprazole Sodium [Protonix] 40 mg PO DAILY - Assessment/Plan Last 24 Hours: My Active Orders 01/29/19 13:35 Sodium Chloride 0.9% [Saline Flush] 10 ml FLUSH ASDIRECTED PRN 01/29/19 13:41 Blood Culture x2 Reflex Set [OM.PC] Stat Saline Lock Insert [OM.PC] Stat Severe Sepsis Onset Time [OM.PC] Stat 01/29/19 13:42 Cardiac Monitoring [RC] CONTINUOUS 01/29/19 13:49 fentaNYL [Sublimaze] 25 mcg IVPUSH Q2H PRN 01/29/19 14:03 CULTURE BLOOD [BC] Stat 01/29/19 14:15 CULTURE BLOOD [BC] Stat 01/29/19 16:17 Patient Status Manage Transfer [TRANSFER] Routine 01/29/19 16:26 Albuterol/Ipratropium [DuoNeb 3.0-0.5 MG/3 ML] 3 ml NEB Q8HRRT PRN 01/29/19 16:38 Consult to Case Management/O[employer] Process [place] [CONS] Routine Consult to Physician [CONS] Routine Albuterol [Proventil Neb Soln] 2.5 mg NEB Q2H PRN Atropine 1% [Atropine 1% Ophth Soln] See Dose Instructions SL Q2H PRN 01/29/19 16:39 Oxygen Therapy [RC] PRN 01/29/19 16:40 Patient Status [ADT] Routine Oxygen Therapy [RC] PRN Vital Signs [RC] Q4H 01/29/19 16:49 Notify Provider Consults [RC] ASDIRECTED 01/30/19 08:00 Pantoprazole Sodium [Protonix] 40 mg PO DAILY
[2019-01-29] MEDS ORDERED: Albuterol/Ipratropium 3.0-0.5 MG/3 ML Neb Soln NEB PRN (16:26)
[2019-01-29] MEDS ORDERED: Albuterol 0.083% 2.5 MG/3 ML Neb Soln NEB PRN (16:38)
[2019-01-29] MEDS: Sodium Chloride 0.9% 10 ML Syringe FLUSH PRN ×3 (21:09→23:11)
[2019-01-29] MEDS: Atropine 1% Ophth Soln 5 ML BOTTLE SL PRN (23:23)
[2019-01-30] MEDS: Sodium Chloride 0.9% 10 ML Syringe FLUSH PRN ×4 (01:05→19:41)
[2019-01-30] MEDS: fentaNYL 100 MCG/2 ML SDV IVPUSH PRN ×3 (01:09→06:40)
[2019-01-30] MEDS ORDERED: Non-Formulary Medication 1 Each (Pantoprazole Sodium [Protonix] 40 MG) PO SCH (08:00)
[2019-01-30] MEDS: Omeprazole 20 MG Cap.CR PO SCH (09:41)
[2019-01-30] MEDS: Atropine 1% Ophth Soln 5 ML BOTTLE SL PRN ×2 (09:41→19:38)
[2019-01-30] MEDS: cefTRIAXone 1 GM Vial IV SCH (11:41)
[2019-01-30] MEDS: HYDROmorphone 1 MG/ML Syringe IV SCH ×2 (11:41→19:37)
[2019-01-30] MEDS: Azithromycin 250 MG Tab PO SCH (11:41)
--- NOTE | 2019-01-30 14:55 | PCM.PN ---
- General Info Date of Service: 01/30/19 Admission Dx/Problem (Free Text): Weakness Pneumonia Subjective Update: 73 year old male transferred from SNF to ER with concerns of fever and lethargy. Patient was discharged from [facility] on 01/24/2019 with diagnosis of bilateral pneumonia, acute on chronic kidney disease, severe anemia of unknown origin. Patient underwent a bone marrow biopsy during that stay. indicates she has not yet heard results. - Review of Systems General: Reports: Weakness (Patient unable to provide ROS due to lethargy) - Patient Data Vitals - Most Recent: Last Vital Signs Temp 36.6 C 01/30/19 13:50 Pulse 96 01/30/19 13:50 Resp 24 H 01/30/19 13:50 BP 135/57 L 01/30/19 13:50 Pulse Ox 96 01/30/19 13:50 Weight - Most Recent: 87.362 kg I&O - Last 24 Hours: Intake & Output 01/29/19 01/30/19 01/30/19 22:59 06:59 14:59 Intake Total 120 300 240 Output Total 600 Balance 120 -300 240 Lab Results Last 24 Hours: Laboratory Results - last 24 hr 01/29/19 Range/Units 15:00 Urine Color Chel[place] H (YELLOW) Urine Appearance Slightly cloudy H (CLEAR) Urine pH 5.0 (5.0-8.0) Ur Specific Yolyn <=1.005 Urine Protein Trace H (NEGATIVE) mg/dL Urine Glucose (UA) Negative (NEGATIVE) mg/dL Urine Ketones Negative (NEGATIVE) mg/dL Urine Occult Blood Moderate H (NEGATIVE) Urine Nitrite Negative (NEGATIVE) Urine Bilirubin Small H (NEGATIVE) Urine Urobilinogen 4.0 H (0.2) EU/dL Ur Leukocyte Esterase Small H (NEGATIVE) Urine RBC 5-10 H (NOT SEEN) /HPF Urine WBC 5-10 H (NOT SEEN) /HPF Ur Squamous Epith Cells Rare (NEGATIVE) /HPF Amorphous Sediment Moderate Urine Bacteria Not seen (NEGATIVE) /HPF Hyaline Casts Rare H (NEGATIVE) /HPF Urine Mucus Few H (NEGATIVE) /LPF Brian Results Last 24 Hours: Microbiology 01/29/19 14:15 Aerobic Blood Culture - Preliminary Blood - Venous - Lab Draw NO GROWTH AFTER 1 DAY Anaerobic Blood Culture - Preliminary NO GROWTH AFTER 1 DAY 01/29/19 14:03 Aerobic Blood Culture - Preliminary Blood - Venous NO GROWTH AFTER 1 DAY Anaerobic Blood Culture - Preliminary NO GROWTH AFTER 1 DAY Med Orders - Current: Current Medications Albuterol (Proventil Neb Soln) 2.5 mg NEB Q2H PRN PRN Reason: Shortness of breath/dyspnea Albuterol/Ipratropium (Duoneb 3.0-0.5 Mg/3 Ml) 3 ml NEB Q8HRRT PRN PRN Reason: Shortness of Breath Atropine Sulfate (Atropine 1% Ophth Soln) 0 ml SL Q2H PRN PRN Reason: Copius Secretions Last Admin: 01/30/19 09:41 Dose: 5 ml Azithromycin (Zithromax) 500 mg PO Q24H [facility] Stop: 02/03/19 11:16 Last Admin: 01/30/19 11:41 Dose: 500 mg Ceftriaxone Sodium (Rocephin) 1 gm IV Q24H [facility] Last Admin: 01/30/19 11:41 Dose: 1 gm Hydromorphone HCl (Dilaudid) 0.5 mg IV Q8H [facility] Last Admin: 01/30/19 11:41 Dose: 0.5 mg Hydromorphone HCl (Dilaudid) 0.5 mg IV Q4H PRN PRN Reason: PAIN Omeprazole (Omeprazole) 20 mg PO DAILY [facility] Last Admin: 01/30/19 09:41 Dose: 20 mg Sodium Chloride (Saline Flush) 10 ml FLUSH ASDIRECTED PRN PRN Reason: Keep Vein Open Last Admin: 01/30/19 06:40 Dose: 10 ml Discontinued Medications Fentanyl (Sublimaze) 25 mcg IVPUSH Q2H PRN PRN Reason: Pain Last Admin: 01/30/19 06:40 Dose: 25 mcg Fentanyl (Sublimaze) 25 mcg IVPUSH ONETIME ONE Stop: 01/29/19 15:10 Last Admin: 01/29/19 16:00 Dose: 25 mcg Influenza Virus Vaccine (Pharmacy To Dose - Influenza Vaccine) 1 each IM ONETIME ONE Stop: 01/29/19 17:52 Influenza Virus Vaccine (Fluzone High-Dose 2018- Syringe) 180 mcg IM .ONCE ONE Stop: 01/29/19 18:01 Last Admin: 01/29/19 21:17 Dose: Not Given Non-Formulary Medication (Pantoprazole Sodium [Protonix]) 40 mg PO DAILY [facility] Last Admin: 01/30/19 09:23 Dose: Not Given - Exam Quality Assessment: Supplemental Oxygen General: Lethargic Neck: Supple Lungs: Decreased Breath Sounds Cardiovascular: Regular Rate GI/Abdominal Exam: Soft Skin: Ecchymosis - Problem List & Annotations (1) Thrombocytopenia SNOMED Code(s): 559154159 Code(s): D69.6 - THROMBOCYTOPENIA, UNSPECIFIED Status: Acute Current Visit: Yes (2) Anemia SNOMED Code(s): 054133935 Code(s): D64.9 - ANEMIA, UNSPECIFIED Status: Acute Current Visit: Yes Qualifiers: Anemia type: other cause (3) Pneumonia SNOMED Code(s): 056424162 Code(s): J18.9 - PNEUMONIA, UNSPECIFIED ORGANISM Status: Acute Current Visit: Yes Qualifiers: Pneumonia type: due to unspecified organism Laterality: bilateral Lung location: unspecified part of lung Qualified Code(s): J18.9 - Pneumonia, unspecified organism (4) Right renal mass SNOMED Code(s): 189450526 Code(s): N28.89 - OTHER SPECIFIED DISORDERS OF KIDNEY AND URETER Status: Acute Current Visit: Yes (5) Myeloid dysplasia SNOMED Code(s): 086892914 Code(s): D46.9 - MYELODYSPLASTIC SYNDROME, UNSPECIFIED Status: Acute Priority: High Current Visit: Yes (6) Weakness generalized SNOMED Code(s): 26866788 Code(s): R53.1 - WEAKNESS Status: Acute Current Visit: Yes (7) CHF, Congestive heart failure SNOMED Code(s): 15811210 Code(s): I50.9 - HEART FAILURE, UNSPECIFIED Status: Chronic Current Visit : No (8) Alcoholic peripheral neuropathy Status: Chronic Priority: Medium Current Visit: No (9) Coronary artery bypass grafts x 4 SNOMED Code(s): 554330913 - Coronary artery bypass grafts x 4 Status: Chronic Current Visit: No Annotation/Comment:: No acute processes. On pathway from [place]. Hold Heparin for DVT prophylaxis as pt is oozing from wound sites including IV and blood draws (10) Hypertension SNOMED Code(s): 18788793 Code(s): I10 - ESSENTIAL (PRIMARY) HYPERTENSION Status: Chronic Priority : Medium Current Visit: No Qualifiers: Hypertension type: essential hypertension Qualified Code(s): I10 - Essential (primary) hypertension - Problem List Review Problem List Initiated/Reviewed/Updated: Yes - My Orders Last 24 Hours: My Active Orders 01/30/19 11:10 Admission Status [Patient Status] [ADT] Routine 01/30/19 11:11 HYDROmorphone [Dilaudid] 0.5 mg IV Q4H PRN 01/30/19 11:15 Azithromycin [Zithromax] 500 mg PO Q24H cefTRIAXone [Rocephin] 1 gm IV Q24H 01/30/19 12:00 HYDROmorphone [Dilaudid] 0.5 mg IV Q8H - Assessment Assessment:: Bilateral pneumonia Weakness Anemia Thrombocytopenia Myeloid dysplasia Right renal mass Hypertension CAD CHF - diastolic COPD History of alcohol abuse - Plan Plan:: Patient status will be changed to acute. Treatment will be started for bilateral pneumonia. I will research results from bone marrow biopsy and notify . She is leaning towards palliative/hospice/comfort cares with respect to the myeloid dysplasia. Scheduled pain medication for his complaints of bone pain.
[2019-01-31] MEDS: Sodium Chloride 0.9% 10 ML Syringe FLUSH PRN ×2 (03:53→20:58)
[2019-01-31] MEDS: HYDROmorphone 1 MG/ML Syringe IV SCH ×3 (03:54→20:56)
--- NOTE | 2019-01-31 07:48 | PCM.PN ---
- General Info Date of Service: 01/31/19 Admission Dx/Problem (Free Text): Weakness Pneumonia Subjective Update: 73 year old male transferred from SNF to ER with concerns of fever and lethargy. Patient was discharged from [facility] on 01/24/2019 with diagnosis of bilateral pneumonia, acute on chronic kidney disease, severe anemia of unknown origin. Patient underwent a bone marrow biopsy during that stay. indicates she has not yet heard results. Functional Status: Reports: Pain Controlled (state right wrist is painful), Urinating (per benedict). Denies: Ambulating, New Symptoms - Review of Systems General: Reports: Weakness. Denies: Fever, Chills Pulmonary: Reports: Shortness of Breath, Cough, Sputum Cardiovascular: Denies: Chest Pain, Palpitations Gastrointestinal: Denies: Abdominal Pain, Nausea, Vomiting Skin: Reports: No Symptoms Neurological: Reports: Confusion - Patient Data Vitals - Most Recent: Last Vital Signs Temp 96.8 F 01/31/19 05:00 Pulse 83 01/31/19 05:00 Resp 19 01/31/19 05:00 BP 144/67 H 01/31/19 05:00 Pulse Ox 97 01/31/19 05:00 Weight - Most Recent: 192 lb 9.6 oz I&O - Last 24 Hours: Intake & Output 01/30/19 01/31/19 01/31/19 22:59 06:59 14:59 Intake Total 900 Output Total 400 1100 Balance -400 -200 Brian Results Last 24 Hours: Microbiology 01/29/19 14:15 Aerobic Blood Culture - Preliminary Blood - Venous - Lab Draw NO GROWTH AFTER 1 DAY Anaerobic Blood Culture - Preliminary NO GROWTH AFTER 1 DAY 01/29/19 14:03 Aerobic Blood Culture - Preliminary Blood - Venous NO GROWTH AFTER 1 DAY Anaerobic Blood Culture - Preliminary NO GROWTH AFTER 1 DAY Med Orders - Current: Current Medications Albuterol (Proventil Neb Soln) 2.5 mg NEB Q2H PRN PRN Reason: Shortness of breath/dyspnea Albuterol/Ipratropium (Duoneb 3.0-0.5 Mg/3 Ml) 3 ml NEB Q8HRRT PRN PRN Reason: Shortness of Breath Atropine Sulfate (Atropine 1% Ophth Soln) 0 ml SL Q2H PRN PRN Reason: Copius Secretions Last Admin: 01/30/19 19:38 Dose: 0.1 ml Azithromycin (Zithromax) 500 mg PO Q24H [facility] Stop: 02/03/19 11:16 Last Admin: 01/30/19 11:41 Dose: 500 mg Ceftriaxone Sodium (Rocephin) 1 gm IV Q24H [facility] Last Admin: 01/30/19 11:41 Dose: 1 gm Hydromorphone HCl (Dilaudid) 0.5 mg IV Q8H [facility] Last Admin: 01/31/19 03:54 Dose: 0.5 mg Hydromorphone HCl (Dilaudid) 0.5 mg IV Q4H PRN PRN Reason: PAIN Omeprazole (Omeprazole) 20 mg PO DAILY [facility] Last Admin: 01/30/19 09:41 Dose: 20 mg Sodium Chloride (Saline Flush) 10 ml FLUSH ASDIRECTED PRN PRN Reason: Keep Vein Open Last Admin: 01/31/19 03:53 Dose: 10 ml Discontinued Medications Fentanyl (Sublimaze) 25 mcg IVPUSH Q2H PRN PRN Reason: Pain Last Admin: 01/30/19 06:40 Dose: 25 mcg Fentanyl (Sublimaze) 25 mcg IVPUSH ONETIME ONE Stop: 01/29/19 15:10 Last Admin: 01/29/19 16:00 Dose: 25 mcg Influenza Virus Vaccine (Pharmacy To Dose - Influenza Vaccine) 1 each IM ONETIME ONE Stop: 01/29/19 17:52 Influenza Virus Vaccine (Fluzone High-Dose 2019- Syringe) 180 mcg IM .ONCE ONE Stop: 01/29/19 18:01 Last Admin: 01/29/19 21:17 Dose: Not Given Non-Formulary Medication (Pantoprazole Sodium [Protonix]) 40 mg PO DAILY [facility] Last Admin: 01/30/19 09:23 Dose: Not Given - Exam Quality Assessment: Supplemental Oxygen, Urine Catheter General: Alert, Cooperative, No Acute Distress Lungs: Clear to Auscultation, Normal Respiratory Effort, Decreased Breath Sounds Cardiovascular: Regular Rate, Regular Rhythm GI/Abdominal Exam: Soft, Non-Tender, Abnormal Bowel Sounds (Hypoactive) Extremities: No Pedal Edema Peripheral Pulses: 2+: Radial (L), Radial (R) Skin: Warm, Dry Neurological: Other (Confused) - Problem List Review Problem List Initiated/Reviewed/Updated: Yes - Assessment Assessment:: Bilateral pneumonia Weakness Anemia Thrombocytopenia Myeloid dysplasia Right renal mass Hypertension CAD CHF - diastolic COPD History of alcohol abuse - Plan Plan:: Continue acute care for now. Continue treatment for bilateral pneumonia. Bone marrow bx results pending. Family is leaning towards palliative/hospice/comfort cares with respect to the myeloid dysplasia. Scheduled pain medication for his complaints of bone pain. Continue medications the same. NOTE: This patient was seen and examined by me as an [facility] provider.
[2019-01-31] MEDS: Omeprazole 20 MG Cap.CR PO SCH (09:07)
[2019-01-31] MEDS: HYDROmorphone 1 MG/ML Syringe IV PRN (09:20)
[2019-01-31] MEDS: cefTRIAXone 1 GM Vial IV SCH (11:18)
[2019-01-31] MEDS: Azithromycin 250 MG Tab PO SCH (11:19)
[2019-02-01] MEDS: Sodium Chloride 0.9% 10 ML Syringe FLUSH PRN ×2 (04:43→20:33)
[2019-02-01] MEDS: HYDROmorphone 1 MG/ML Syringe IV SCH ×3 (04:44→20:34)
[2019-02-01 06:51] LABS: CHLORIDE,CL 107 mmol/L (54-184); SODIUM,NA 142 mmol/L (69-191)
[2019-02-01 07:23] LABS: ANION GAP 13.1 mmol/L (10-20)
--- NOTE | 2019-02-01 07:57 | PCM.PN ---
- General Info Date of Service: 02/01/19 Admission Dx/Problem (Free Text): Weakness Pneumonia Subjective Update: Patient very confused this AM. Unable to obtained ROS. Patient speech is garbled. Patient is disoriented. Figgity in bed. Patient does shake head "no" when asked if having pain. Otherwise, unable to discern answers. Functional Status: Reports: Pain Controlled. Denies: Ambulating, New Symptoms - Review of Systems Systems Review Comment:: Unable to assess, patient is very confused - Patient Data Vitals - Most Recent: Last Vital Signs Temp 96.6 F 02/01/19 05:09 Pulse 94 02/01/19 05:09 Resp 23 H 02/01/19 05:09 BP 151/55 H 02/01/19 05:09 Pulse Ox 2 L 02/01/19 05:09 Weight - Most Recent: 188 lb 12.8 oz I&O - Last 24 Hours: Intake & Output 01/31/19 02/01/19 02/01/19 22:59 06:59 14:59 Intake Total 20 700 Output Total 650 900 Balance -630 -200 Lab Results Last 24 Hours: Laboratory Results - last 24 hr 02/01/19 02/01/19 Range/Units 06:20 06:20 WBC 4.2 (4.0-10.0) x10^3/uL RBC 2.35 L (4.5-6.0) x10^6/uL Hgb 7.6 L (14.0-18.0) g/dL Hct 23.3 L (40.0-52.0) % MCV 99.1 H (78.0-93.0) fL MCH 32.3 H (26.0-32.0) pg MCHC 32.6 (32.0-36.0) g/dL RDW Coeff of Derek 18.1 H (10.0-15.0) % Plt Count 19 L* (130-400) x10^3/uL Add Manual Diff Yes Neutrophils % (Manual) 48 L (50-80) % Band Neutrophils % 3 (0-6) % Lymphocytes % (Manual) 22 L (25-50) % Monocytes % (Manual) 17 H (2-11) % Basophils % (Manual) 3 H (0-1) % Metamyelocytes % 3 H (0) % Myelocytes % 4 H (0) % Vacuolated Monocytes 1+ slight H Toxic Granulation 2+ moderate H Platelet Estimate Marked dec L Anisocytosis 2+ moderate H Macrocytosis 1+ slight H Spherocytes 1+ slight H Sodium 142 (69-191) mmol/L Potassium 4.1 (1.5-9.9) mmol/L Chloride 107 (54-184) mmol/L Carbon Dioxide 26 (21-32) mmol/L Anion Gap 13.1 (10-20) mmol/L BUN 27 H (7-18) mg/dL Creatinine 1.3 (0.70-1.30) mg/dL Est Cr Clr Drug Dosing TNP Estimated GFR (MDRD) 54 Glucose 107 H (74-106) mg/dL Calcium 8.5 (8.5-10.1) mg/dL Corrected Calcium 9.78 (8.5-10.1) mg/dL Total Bilirubin 1.7 H (0.2-1.0) mg/dL AST 56 H (15-37) U/L ALT 68 H (16-63) U/L Alkaline Phosphatase 348 H (46-116) U/L Total Protein 7.2 (6.4-8.2) g/dL Albumin 2.4 L (3.4-5.0) g/dL Globulin 4.8 Albumin/Globulin Ratio 0.50 Brian Results Last 24 Hours: Microbiology 01/29/19 14:15 Aerobic Blood Culture - Preliminary Blood - Venous - Lab Draw NO GROWTH AFTER 2 DAYS Anaerobic Blood Culture - Preliminary NO GROWTH AFTER 2 DAYS 01/29/19 14:03 Aerobic Blood Culture - Preliminary Blood - Venous NO GROWTH AFTER 2 DAYS Anaerobic Blood Culture - Preliminary NO GROWTH AFTER 2 DAYS Med Orders - Current: Current Medications Albuterol (Proventil Neb Soln) 2.5 mg NEB Q2H PRN PRN Reason: Shortness of breath/dyspnea Albuterol/Ipratropium (Duoneb 3.0-0.5 Mg/3 Ml) 3 ml NEB Q8HRRT PRN PRN Reason: Shortness of Breath Atropine Sulfate (Atropine 1% Ophth Soln) 0 ml SL Q2H PRN PRN Reason: Copius Secretions Last Admin: 01/30/19 19:38 Dose: 0.1 ml Azithromycin (Zithromax) 500 mg PO Q24H [facility] Stop: 02/03/19 11:16 Last Admin: 01/31/19 11:19 Dose: 500 mg Ceftriaxone Sodium (Rocephin) 1 gm IV Q24H [facility] Last Admin: 01/31/19 11:18 Dose: 1 gm Hydromorphone HCl (Dilaudid) 0.5 mg IV Q8H [facility] Last Admin: 02/01/19 04:44 Dose: 0.5 mg Hydromorphone HCl (Dilaudid) 0.5 mg IV Q4H PRN PRN Reason: PAIN Last Admin: 01/31/19 09:20 Dose: 0.5 mg Omeprazole (Omeprazole) 20 mg PO DAILY [facility] Last Admin: 01/31/19 09:07 Dose: 20 mg Sodium Chloride (Saline Flush) 10 ml FLUSH ASDIRECTED PRN PRN Reason: Keep Vein Open Last Admin: 02/01/19 04:43 Dose: 10 ml Discontinued Medications Fentanyl (Sublimaze) 25 mcg IVPUSH Q2H PRN PRN Reason: Pain Last Admin: 01/30/19 06:40 Dose: 25 mcg Fentanyl (Sublimaze) 25 mcg IVPUSH ONETIME ONE Stop: 01/29/19 15:10 Last Admin: 01/29/19 16:00 Dose: 25 mcg Influenza Virus Vaccine (Pharmacy To Dose - Influenza Vaccine) 1 each IM ONETIME ONE Stop: 01/29/19 17:52 Influenza Virus Vaccine (Fluzone High-Dose 2019-20 Syringe) 180 mcg IM .ONCE ONE Stop: 01/29/19 18:01 Last Admin: 01/29/19 21:17 Dose: Not Given Non-Formulary Medication (Pantoprazole Sodium [Protonix]) 40 mg PO DAILY [facility] Last Admin: 01/30/19 09:23 Dose: Not Given - Exam Quality Assessment: Supplemental Oxygen, Urine Catheter General: Alert, Cooperative, No Acute Distress. No: Oriented Lungs: Normal Respiratory Effort, Rhonchi (clear with cough) Cardiovascular: Regular Rate, Regular Rhythm GI/Abdominal Exam: Soft, Non-Tender, Abnormal Bowel Sounds (Hypoactive) Extremities: No Pedal Edema Peripheral Pulses: 2+: Radial (L), Radial (R) Skin: Warm, Dry Neurological: No New Focal Deficit - Problem List Review Problem List Initiated/Reviewed/Updated: Yes - My Orders Last 24 Hours: My Active Orders 10/30/19 07:49 Resuscitation Status Routine - Assessment Assessment:: Bilateral pneumonia Weakness Anemia Thrombocytopenia Myeloid dysplasia Right renal mass Hypertension CAD CHF - diastolic COPD History of alcohol abuse - Plan Plan:: Continue acute care for now. Continue treatment for bilateral pneumonia. Bone marrow bx results pending. Family is leaning towards palliative/hospice/comfort cares with respect to the myeloid dysplasia. Scheduled pain medication for his complaints of bone pain. Continue medications the same. Labs improved today. Patient less uremic. Platelets only increase to 19, from 15. Hgb stable at 7.6, no change from yesterday. Creatinine at baseline. Continue with acute cares for now. Consider swing bed. Patient is a Code II. Family does not want patient transferred to a higher level of care should the need arise. Case Management working with family on Code status (Code II versus Comfort Cares). NOTE: This patient was seen and examined by me as an [facility] provider.
[2019-02-01] MEDS: Omeprazole 20 MG Cap.CR PO SCH (08:04)
[2019-02-01] MEDS: Azithromycin 250 MG Tab PO SCH (10:46)
[2019-02-01] MEDS: cefTRIAXone 1 GM Vial IV SCH (10:46)
[2019-02-02 02:09] VITALS: BP 142/50
[2019-02-02] MEDS: HYDROmorphone 1 MG/ML Syringe IV PRN (02:27)
[2019-02-02] MEDS: Atropine 1% Ophth Soln 5 ML BOTTLE SL PRN (02:36)
[2019-02-02] MEDS: HYDROmorphone 1 MG/ML Syringe IV SCH (04:37)
[2019-02-02] MEDS: Sodium Chloride 0.9% 10 ML Syringe FLUSH PRN (04:37)
[2019-02-02 05:53] VITALS: PULSE 102
[2019-02-02 07:11] LABS: CHLORIDE,CL 109 mmol/L (54-184); SODIUM,NA 146 mmol/L (69-191)
[2019-02-02 07:18] LABS: ANION GAP 13.2 mmol/L (10-20)
[2019-02-02] MEDS: Omeprazole 20 MG Cap.CR PO SCH (08:08)
--- NOTE | 2019-02-02 14:34 | PCM.DCSUM1 ---
Discharge Summary - Hospital Course Free Text/Narrative:: 73 year old male admitted with lethargy, weakness, bone pain. Noted to have bilateral infiltrates - consistent with pneumonia. Pt recently hospitalized at in [place] for severe anemia and thrombocytopenia. Underwent bone biopsy. Path report indicates myeloid dysplasia. requests comfort measures only as it relates to his myeloid dysplasia - refuses further transfusions. Diagnosis: Stroke: No - Discharge Data Discharge Date: 02/02/19 Discharge Disposition: DC/Tfer W/I Hosp To Swing [facility] Condition: Poor - Referral to Home Health Primary Care Physician: Shelbie Jasso DO - Discharge Diagnosis/Problem(s) (1) Thrombocytopenia SNOMED Code(s): 535222446 ICD Code: D69.6 - THROMBOCYTOPENIA, UNSPECIFIED Status: Acute (2) Anemia SNOMED Code(s): 642211576 ICD Code: D64.9 - ANEMIA, UNSPECIFIED Status: Acute Qualifiers: Anemia type: other cause Other causes of anemia: chronic disease, other Qualified Code(s): D63.8 - Anemia in other chronic diseases classified elsewhere (3) Pneumonia SNOMED Code(s): 604320863 ICD Code: J18.9 - PNEUMONIA, UNSPECIFIED ORGANISM Status: Acute Qualifiers: Pneumonia type: due to unspecified organism Laterality: bilateral Lung location: unspecified part of lung Qualified Code(s): J18.9 - Pneumonia, unspecified organism (4) Right renal mass SNOMED Code(s): 414908634 ICD Code: N28.89 - OTHER SPECIFIED DISORDERS OF KIDNEY AND URETER Status: Acute (5) Myeloid dysplasia SNOMED Code(s): 495696100 ICD Code: D46.9 - MYELODYSPLASTIC SYNDROME, UNSPECIFIED Status: Acute Priority: High (6) Weakness generalized SNOMED Code(s): 75867916 ICD Code: R53.1 - WEAKNESS Status: Acute (7) CHF, Congestive heart failure SNOMED Code(s): 60041244 ICD Code: I50.9 - HEART FAILURE, UNSPECIFIED Status: Chronic (8) Alcoholic peripheral neuropathy Status: Chronic Priority: Medium (9) Coronary artery bypass grafts x 4 SNOMED Code(s): 842054038 - Coronary artery bypass grafts x 4 Status: Chronic Problem Details: (10) Hypertension SNOMED Code(s): 23016234 ICD Code: I10 - ESSENTIAL (PRIMARY) HYPERTENSION Status: Chronic Priority : Medium Qualifiers: Hypertension type: essential hypertension Qualified Code(s): I10 - Essential (primary) hypertension - Patient Summary/Data Consults: Consultations 01/29/19 16:38 Consult to Case Management/Student Worker [CONS] Routine Consult to Physician [CONS] Routine Hospital Course: 73 year old admitting to [facility] surg floor. Started on IV and oral antibiotics for treatment of bilateral pneumonia. Clinically patient was noted to have fever at SNF. Cough present as well. Pt also indicating he is in severe pain. states he had told her "every bone hurts." Patient started on scheduled pain medications. Labs indicate hemoglobin again dropped to 7, platelet count critically low. refuses further evaluation or treatment for myeloid dysplasia. Case management consulted and inform me of and family's request for patient to remain at [facility] for comfort cares - Patient Instructions Diet: Usual Diet as Tolerated - Discharge Plan *PRESCRIPTION DRUG MONITORING PROGRAM REVIEWED*: Not Applicable *COPY OF PRESCRIPTION DRUG MONITORING REPORT IN PATIENT BIANCA: Not Applicable Home Medications: Home Meds Folic Acid 800 mcg PO DAILY 11/06/13 [History] Pantoprazole Sodium [Protonix] 40 mg PO DAILY 11/06/13 [History] Clopidogrel [Plavix] 75 mg PO DAILY 02/27/14 [History] atorvaSTATin [Lipitor] 20 mg PO ACDINNER 02/27/14 [History] Alfuzosin HCl [Alfuzosin HCl ER] 10 mg PO DAILY 03/30/16 [History] Lisinopril [Prinivil] 10 mg PO DAILY 03/30/16 [History] Magnesium 400 mg PO DAILY 03/30/16 [History] Potassium Chloride [Klor-Con 10] 20 meq PO BIDMEALS 03/30/16 [History] Sertraline HCl 150 mg PO DAILY 03/30/16 [History] Thiamine HCl 100 mg PO DAILY 03/30/16 [History] Amiodarone [Cordarone] 100 mg PO DAILY #30 04/03/16 [Rx] Finasteride [Proscar] 5 mg PO DAILY #30 04/03/16 [Rx] LORazepam [Ativan] 0.5 mg PO Q6H PRN #15 tablet 04/03/16 [Rx] Metoprolol Succinate [Toprol XL] 25 mg PO BEDTIME #30 tab.er 04/03/16 [Rx] Ipratropium [Atrovent] 2 spray NASBOTH BID 02/05/17 [History] Spironolactone [Aldactone] 12.5 mg PO DAILY 02/05/17 [History] Albuterol/Ipratropium [DuoNeb 3.0-0.5 MG/3 ML] 3 ml NEB Q8HRRT PRN 01/14/19 [ History] Furosemide [Lasix] 40 mg PO BID 01/14/19 [History] Donepezil [Aricept] 10 mg PO BEDTIME 01/19/19 [History] Fludrocortisone [Fludrocortisone Acetate] 0.2 mg PO DAILY 01/19/19 [History] traMADol HCl [Tramadol HCl] 50 mg PO Q8HR PRN 01/29/19 [History] Forms: ED Department Discharge Referrals: Shelbie Jasso DO [Primary Care Provider] - - Discharge Summary/Plan Comment DC Time >30 min.: No - General Info Date of Service: 02/02/19 Admission Dx/Problem (Free Text: Weakness Pneumonia Subjective Update: Patient very confused this AM. Unable to obtained ROS. Patient speech is garbled. Patient is disoriented. Figgity in bed. Patient does shake head "no" when asked if having pain. Otherwise, unable to discern answers. Functional Status: Denies: Pain Controlled - Review of Systems General: Reports: Weakness (ROS unobtainable secondary to patients LOC) - Patient Data Vitals - Most Recent: Last Vital Signs Temp 36.9 C 02/02/19 05:52 Pulse 102 H 02/02/19 05:52 Resp 20 02/02/19 05:52 BP 142/50 H 02/02/19 02:00 Pulse Ox 94 L 02/02/19 08:00 Weight - Most Recent: 83.733 kg I&O - Last 24 hours: Intake & Output 02/01/19 02/02/19 02/02/19 22:59 06:59 14:59 Intake Total 120 0 0 Output Total 650 600 Balance -530 -600 0 Lab Results - Last 24 hrs: Laboratory Results - last 24 hr 02/02/19 02/02/19 Range/Units 06:35 06:35 WBC 4.5 (4.0-10.0) x10^3/uL RBC 2.31 L (4.5-6.0) x10^6/uL Hgb 7.4 L (14.0-18.0) g/dL Hct 22.7 L (40.0-52.0) % MCV 98.3 H (78.0-93.0) fL MCH 32.0 (26.0-32.0) pg MCHC 32.6 (32.0-36.0) g/dL RDW Coeff of Derek 18.5 H (10.0-15.0) % Plt Count 32 L* (130-400) x10^3/uL Add Manual Diff Yes Neutrophils % (Manual) 39 L (50-80) % Band Neutrophils % 3 (0-6) % Lymphocytes % (Manual) 26 (25-50) % Monocytes % (Manual) 19 H (2-11) % Eosinophils % (Manual) 1 (0-4) % Basophils % (Manual) 2 H (0-1) % Metamyelocytes % 6 H (0) % Myelocytes % 4 H (0) % Vacuolated Monocytes 1+ slight H Toxic Granulation 1+ slight H Platelet Estimate Marked dec L Giant Platelets Rare H Anisocytosis 2+ moderate H Sodium 146 H (69-191) mmol/L Potassium 4.2 (1.5-9.9) mmol/L Chloride 109 H (54-184) mmol/L Carbon Dioxide 28 (21-32) mmol/L Anion Gap 13.2 (10-20) mmol/L BUN 23 H (7-18) mg/dL Creatinine 1.3 (0.70-1.30) mg/dL Est Cr Clr Drug Dosing TNP Estimated GFR (MDRD) 54 Glucose 112 H (74-106) mg/dL Calcium 8.7 (8.5-10.1) mg/dL Corrected Calcium 10.06 (8.5-10.1) mg/dL Magnesium 2.3 (1.8-2.4) mg/dL Total Bilirubin 1.9 H (0.2-1.0) mg/dL AST 51 H (15-37) U/L ALT 63 (16-63) U/L Alkaline Phosphatase 386 H (46-116) U/L Total Protein 7.2 (6.4-8.2) g/dL Albumin 2.3 L (3.4-5.0) g/dL Globulin 4.9 Albumin/Globulin Ratio 0.47 TREVER Results - Last 24 hrs: Microbiology 01/29/19 14:15 Aerobic Blood Culture - Preliminary Blood - Venous - Lab Draw NO GROWTH AFTER 4 DAYS Anaerobic Blood Culture - Preliminary NO GROWTH AFTER 4 DAYS 01/29/19 14:03 Aerobic Blood Culture - Preliminary Blood - Venous NO GROWTH AFTER 4 DAYS Anaerobic Blood Culture - Preliminary NO GROWTH AFTER 4 DAYS Med Orders - Current: Current Medications Discontinued Medications Albuterol (Proventil Neb Soln) 2.5 mg NEB Q2H PRN PRN Reason: Shortness of breath/dyspnea Albuterol/Ipratropium (Duoneb 3.0-0.5 Mg/3 Ml) 3 ml NEB Q8HRRT PRN PRN Reason: Shortness of Breath Last Admin: 02/02/19 02:27 Dose: 3 ml Atropine Sulfate (Atropine 1% Ophth Soln) 0 ml SL Q2H PRN PRN Reason: Copius Secretions Last Admin: 02/02/19 02:36 Dose: 0.5 ml Azithromycin (Zithromax) 500 mg PO Q24H MIRIAN Stop: 02/03/19 11:16 Last Admin: 02/01/19 10:46 Dose: 500 mg Ceftriaxone Sodium (Rocephin) 1 gm IV Q24H MIRIAN Last Admin: 02/01/19 10:46 Dose: 1 gm Fentanyl (Sublimaze) 25 mcg IVPUSH Q2H PRN PRN Reason: Pain Last Admin: 01/30/19 06:40 Dose: 25 mcg Fentanyl (Sublimaze) 25 mcg IVPUSH ONETIME ONE Stop: 01/29/19 15:10 Last Admin: 01/29/19 16:00 Dose: 25 mcg Hydromorphone HCl (Dilaudid) 0.5 mg IV Q8H MIRIAN Last Admin: 02/02/19 04:37 Dose: 0.5 mg Hydromorphone HCl (Dilaudid) 0.5 mg IV Q4H PRN PRN Reason: PAIN Last Admin: 02/02/19 02:27 Dose: 0.5 mg Influenza Virus Vaccine (Pharmacy To Dose - Influenza Vaccine) 1 each IM ONETIME ONE Stop: 01/29/19 17:52 Influenza Virus Vaccine (Fluzone High-Dose Syringe) 180 mcg IM .ONCE ONE Stop: 01/29/19 18:01 Last Admin: 01/29/19 21:17 Dose: Not Given Non-Formulary Medication (Pantoprazole Sodium [Protonix]) 40 mg PO DAILY [facility] Last Admin: 01/30/19 09:23 Dose: Not Given Omeprazole (Omeprazole) 20 mg PO DAILY [facility] Last Admin: 02/02/19 08:08 Dose: Not Given Sodium Chloride (Saline Flush) 10 ml FLUSH ASDIRECTED PRN PRN Reason: Keep Vein Open Last Admin: 02/02/19 04:37 Dose: 10 ml - Exam Quality Assessment: Reports: Supplemental Oxygen General: Reports: Lethargic (Will open eyes to light touch - moans and is apparently uncomfortable) HEENT: Reports: Pupils Equal Neck: Reports: Supple Lungs: Reports: Crackles Cardiovascular: Reports: Regular Rate GI/Abdominal Exam: Normal Bowel Sounds Back Exam: Reports: Normal Inspection Extremities: Normal Inspection Skin: Reports: Warm
== END 2019-02-02 09:41 | disposition swing bed (61) | DRG 193 ==
LOC: VM.ED 13:27 → VM.MS 16:40 → OBSVTOIN 01-30 11:10
PROVIDERS: ADMIT Family Medicine; ATTEND Family Medicine
DX: J18.9 Pneumonia, unspecified organism (principal); I50.33 Acute on chronic diastolic (congestive) heart failure; N17.9 Acute kidney failure, unspecified; R53.1 Weakness; Z51.5 Encounter for palliative care; I11.0 Hypertensive heart disease with heart failure; R52 Pain, unspecified; R05 Cough; R41.0 Disorientation, unspecified; R50.9 Fever, unspecified; M25.431 Effusion, right wrist; R19.00 Intra-abdominal and pelvic swelling, mass and lump, unspecified site; I10 Essential (primary) hypertension; R29.6 Repeated falls; I25.10 Atherosclerotic heart disease of native coronary artery without angina pectoris; F17.210 Nicotine dependence, cigarettes, uncomplicated; Z79.02 Long term (current) use of antithrombotics/antiplatelets; E11.42 Type 2 diabetes mellitus with diabetic polyneuropathy; Z95.1 Presence of aortocoronary bypass graft; Z91.81 History of falling; Z88.0 Allergy status to penicillin; Z22.322 Carrier or suspected carrier of Methicillin resistant Staphylococcus aureus; Z88.2 Allergy status to sulfonamides; Z88.1 Allergy status to other antibiotic agents; Z79.899 Other long term (current) drug therapy; H54.7 Unspecified visual loss; J44.9 Chronic obstructive pulmonary disease, unspecified; H91.90 Unspecified hearing loss, unspecified ear; E78.00 Pure hypercholesterolemia, unspecified; I25.2 Old myocardial infarction; M19.91 Primary osteoarthritis, unspecified site; G89.29 Other chronic pain; M54.9 Dorsalgia, unspecified; F32.9 Major depressive disorder, single episode, unspecified; Z87.891 Personal history of nicotine dependence; D69.6 Thrombocytopenia, unspecified; D64.9 Anemia, unspecified; G62.1 Alcoholic polyneuropathy; D46.9 Myelodysplastic syndrome, unspecified
CPT/HCPCS: 36415; 71045; 80053; 81001; 83605; 85025; 87040 ×2; 93010; 94760; 96374; 96376; 99284; 99285; A9270 ×3; J3010 ×8; 83735; 96375; G0378; J0696; J1170; J7620-GY

== ENCOUNTER 2019-02-02 08:40 | Inpatient (IN) | payer MEDICAID, MEDICARE ==
[2019-02-02] MEDS ORDERED: Sodium Chloride 0.9% 10 ML Syringe FLUSH PRN ×2 (12:06)
[2019-02-02] MEDS ORDERED: Albuterol/Ipratropium 3.0-0.5 MG/3 ML Neb Soln (OWN SUPPLY) NEB PRN (12:06)
[2019-02-02] MEDS ORDERED: HYDROMORPHONE 1 MG/ML IV PRN ×2 (12:06→15:17)
[2019-02-02] MEDS ORDERED: Albuterol 0.083% 2.5 MG/3 ML Neb Soln (OWN SUPPLY) NEB PRN (12:06)
[2019-02-02] MEDS ORDERED: Azithromycin 250 MG Tab PO SCH (13:45)
[2019-02-02] MEDS ORDERED: cefTRIAXone 1 GM Vial IV SCH (13:45)
[2019-02-02] MEDS: cefTRIAXone 1 GM Vial IV SCH (14:50)
[2019-02-02] MEDS: Azithromycin 250 MG Tab PO SCH (14:50)
[2019-02-02] MEDS ORDERED: AZITHROMYCIN 250 MG PO SCH (15:00)
[2019-02-02] MEDS ORDERED: CEFTRIAXONE 1 GM IV SCH (15:00)
[2019-02-02] MEDS ORDERED: Albuterol/Ipratropium 3.0-0.5 MG/3 ML Neb Soln NEB PRN (16:59)
[2019-02-02] MEDS: Morphine Oral Concentrate 20 MG/ML 30 ML Bottle PO SCH ×2 (17:25→22:28)
[2019-02-02] MEDS ORDERED: Acetaminophen 325 MG Tab PO PRN (17:29)
[2019-02-02] MEDS ORDERED: HYDROMORPHONE 1 MG/ML IV SCH ×2 (20:00)
[2019-02-02] MEDS: ATROPINE 1% SL PRN (22:33)
[2019-02-03] MEDS: Morphine Oral Concentrate 20 MG/ML 30 ML Bottle PO SCH ×4 (05:20→23:06)
[2019-02-03] MEDS: Omeprazole 20 MG Cap.CR PO SCH (07:14)
[2019-02-03] MEDS ORDERED: cefTRIAXone 1 GM Vial IV SCH (11:15)
[2019-02-03] MEDS: Morphine Oral Concentrate 20 MG/ML 30 ML Bottle PO PRN ×3 (13:41→19:47)
[2019-02-03] MEDS: cefTRIAXone 1 GM Vial IV SCH (14:57)
[2019-02-03] MEDS: Azithromycin 250 MG Tab PO SCH (14:57)
[2019-02-03] MEDS: LORAZEPAM 2 MG/ML BUCCAL PRN ×2 (19:42→23:53)
[2019-02-03] MEDS: ATROPINE 1% SL PRN (19:49)
[2019-02-04] MEDS ORDERED: LORazepam Conc Solution 2 MG/ML 30 ML Bottle BUCCAL PRN (00:04)
[2019-02-04] MEDS: Morphine Oral Concentrate 20 MG/ML 30 ML Bottle PO SCH ×2 (03:47→09:01)
[2019-02-04 05:55] VITALS: BP 111/37; PULSE 121
[2019-02-04] MEDS: Omeprazole 20 MG Cap.CR PO SCH (06:24)
[2019-02-04] MEDS: ATROPINE 1% SL PRN (09:03)
--- NOTE | 2019-02-04 10:01 | PCM.SN ---
- Free Text/Narrative Note: NOTE: Patient seen and examined at 09:50 on 02/04/2019. No spontaneous respirations. No spontaneous heart beat. Patient does not respond to painful or obnoxious stimuli. Patient pronounced at 09:50 on 02/04/2019. Family at bedside. Condolences offered.
--- NOTE | 2019-02-04 10:06 | PCM.DCSUM1 ---
Discharge Summary - Hospital Course HPI Initial Comments: 73 year old male admitted with lethargy, weakness, bone pain. Noted to have bilateral infiltrates - consistent with pneumonia. Pt recently hospitalized at in [place] for severe anemia and thrombocytopenia. Underwent bone biopsy. Path report indicates myeloid dysplasia. requests comfort measures only as it relates to his myeloid dysplasia - refuses further transfusions. Diagnosis: Stroke: No Modified Gina Scale: No Symptoms at All Modified [place] Scale Score: 0 - Discharge Data Discharge Date: 02/04/19 Discharge Disposition: 20 Preliminary Cause of *Q: Multi System Organ Failure Condition: - Referral to Home Health Primary Care Physician: Shelbie Jasso DO - Patient Summary/Data Consults: Consultations 02/02/19 12:06 Consult to Case Management/Bottle Line Worker [CONS] Routine Consult to Physician [CONS] Routine - Discharge Plan *PRESCRIPTION DRUG MONITORING PROGRAM REVIEWED*: Not Applicable *COPY OF PRESCRIPTION DRUG MONITORING REPORT IN PATIENT BIANCA: Not Applicable Home Medications: Home Meds Folic Acid 800 mcg PO DAILY 11/06/13 [History] Pantoprazole Sodium [Protonix] 40 mg PO DAILY 11/06/13 [History] Clopidogrel [Plavix] 75 mg PO DAILY 02/27/14 [History] atorvaSTATin [Lipitor] 20 mg PO ACDINNER 02/27/14 [History] Alfuzosin HCl [Alfuzosin HCl ER] 10 mg PO DAILY 03/30/16 [History] Lisinopril [Prinivil] 10 mg PO DAILY 03/30/16 [History] Magnesium 400 mg PO DAILY 03/30/16 [History] Potassium Chloride [Klor-Con 10] 20 meq PO BIDMEALS 03/30/16 [History] Sertraline HCl 150 mg PO DAILY 03/30/16 [History] Thiamine HCl 100 mg PO DAILY 03/30/16 [History] Amiodarone [Cordarone] 100 mg PO DAILY #30 04/03/16 [Rx] Finasteride [Proscar] 5 mg PO DAILY #30 04/03/16 [Rx] LORazepam [Ativan] 0.5 mg PO Q6H PRN #15 tablet 04/03/16 [Rx] Metoprolol Succinate [Toprol XL] 25 mg PO BEDTIME #30 tab.er 04/03/16 [Rx] Ipratropium [Atrovent] 2 spray NASBOTH BID 02/05/17 [History] Spironolactone [Aldactone] 12.5 mg PO DAILY 02/05/17 [History] Albuterol/Ipratropium [DuoNeb 3.0-0.5 MG/3 ML] 3 ml NEB Q8HRRT PRN 01/14/19 [ History] Furosemide [Lasix] 40 mg PO BID 01/14/19 [History] Donepezil [Aricept] 10 mg PO BEDTIME 01/19/19 [History] Fludrocortisone [Fludrocortisone Acetate] 0.2 mg PO DAILY 01/19/19 [History] traMADol HCl [Tramadol HCl] 50 mg PO Q8HR PRN 01/29/19 [History] - Discharge Summary/Plan Comment DC Time >30 min.: No Discharge Summary/Plan Comment: See Note. Patient at 09:50 on 02/04/2019. Family at bedside. - General Info Date of Service: 02/04/19 - Review of Systems Pulmonary: Reports: Other (No spontaneous respirations) Cardiovascular: Reports: Other (No spontaneous heart beat.) Neurological: Reports: Other (No response to painful or obnoxious stimuli) - Patient Data Vitals - Most Recent: Last Vital Signs Temp 98.0 F 02/04/19 05:42 Pulse 121 H 02/04/19 05:42 Resp 24 H 02/04/19 05:42 BP 111/37 L 02/04/19 05:42 Pulse Ox 92 L 02/04/19 07:07 Weight - Most Recent: 184 lb 8 oz I&O - Last 24 hours: Intake & Output 02/03/19 02/04/19 02/04/19 22:59 06:59 14:59 Intake Total 0 Output Total 400 100 Balance -400 -100 TREVER Results - Last 24 hrs: Microbiology 02/02/19 12:40 Aerobic Blood Culture - Preliminary Blood - Venous - Lab Draw NO GROWTH AFTER 1 DAY Anaerobic Blood Culture - Preliminary NO GROWTH AFTER 1 DAY 02/02/19 12:35 Aerobic Blood Culture - Preliminary Blood - Venous NO GROWTH AFTER 1 DAY Anaerobic Blood Culture - Preliminary NO GROWTH AFTER 1 DAY Med Orders - Current: Current Medications Acetaminophen (Tylenol) 650 mg PO Q6H PRN PRN Reason: Fever Albuterol/Ipratropium (Duoneb 3.0-0.5 Mg/3 Ml) 3 ml NEB Q8HRRT PRN PRN Reason: Shortness of Breath Atropine Sulfate (Atropine 1% Ophth Soln) 0 ml SL Q2H PRN PRN Reason: Copius Secretions Last Admin: 02/04/19 09:03 Dose: 5 ml Lorazepam (Ativan) 0.5 mg BUCCAL Q2H PRN PRN Reason: Anxiety Morphine Sulfate (Morphine 20 Mg/Ml Soln) 5 mg PO Q6H [facility] Last Admin: 02/04/19 09:01 Dose: 0.25 ml Morphine Sulfate (Morphine 20 Mg/Ml Soln) 5 mg PO Q2H PRN PRN Reason: Pain Last Admin: 02/03/19 19:47 Dose: 0.25 ml Omeprazole (Omeprazole) 20 mg PO DAILY@0700 [facility] Last Admin: 02/04/19 06:24 Dose: Not Given Sodium Chloride (Saline Flush) 10 ml FLUSH ASDIRECTED PRN PRN Reason: Keep Vein Open Last Admin: 02/02/19 22:32 Dose: 10 ml Discontinued Medications Albuterol/Ipratropium (Duoneb 3.0-0.5 Mg/3 Ml) 3 ml NEB Q8HRRT PRN PRN Reason: Shortness of Breath Azithromycin (Zithromax) 500 mg PO Q24H [facility] Stop: 02/03/19 15:01 Azithromycin (Zithromax) 500 mg PO Q24H [facility] Stop: 02/03/19 13:46 Last Admin: 02/02/19 14:43 Dose: Not Given Azithromycin (Zithromax) 500 mg PO Q24H [facility] Stop: 02/03/19 14:46 Last Admin: 02/03/19 14:57 Dose: 500 mg Ceftriaxone Sodium (Rocephin) 1 gm IV Q24H [facility] Ceftriaxone Sodium (Rocephin) 1 gm IV Q24H [facility] Stop: 02/03/19 15:01 Ceftriaxone Sodium (Rocephin) 1 gm IV Q24H [facility] Stop: 02/03/19 13:46 Last Admin: 02/02/19 14:43 Dose: Not Given Ceftriaxone Sodium (Rocephin) 1 gm IV Q24H [facility] Stop: 02/03/19 14:46 Last Admin: 02/03/19 14:57 Dose: 1 gm Hydromorphone HCl (Dilaudid) 0.5 mg IV Q8H [facility]IRIAN Hydromorphone HCl (Dilaudid) 0.5 mg IV Q4H PRN PRN Reason: PAIN Hydromorphone HCl (Dilaudid) 0.5 mg IV Q8H MIRIAN Hydromorphone HCl (Dilaudid) 0.5 mg IV Q4H PRN PRN Reason: PAIN Last Admin: 02/02/19 15:38 Dose: 0.5 mg Lorazepam (Ativan) 0.5 mg BUCCAL Q4HR PRN PRN Reason: Anxiety Stop: 02/04/19 00:04 Last Admin: 02/03/19 23:53 Dose: 0.5 mg - Exam Lungs: Reports: Other (No spontaneous respirations) Cardiovascular: Reports: Other (No spontaneous heart beat) Neurological: Reports: Other (No response to painful or obnoxious stimuli) *Q Meaningful Use (DIS) - VTE *Q VTE Criteria *Q: Patient .
== END 2019-02-04 09:50 | disposition expired | DRG 195 ==
LOC: VM.MS 09:41
PROVIDERS: ADMIT Family Medicine; ATTEND Family Medicine
DX: J18.9 Pneumonia, unspecified organism (principal); Z51.5 Encounter for palliative care; M89.8X9 Other specified disorders of bone, unspecified site; R53.1 Weakness; N28.89 Other specified disorders of kidney and ureter; G62.1 Alcoholic polyneuropathy; D69.6 Thrombocytopenia, unspecified; D46.9 Myelodysplastic syndrome, unspecified; I11.0 Hypertensive heart disease with heart failure; I50.9 Heart failure, unspecified; Z95.1 Presence of aortocoronary bypass graft; Z79.899 Other long term (current) drug therapy
CPT/HCPCS: 36415; 87040; 94760; A9270-GY; J0696; J1170